=== PATIENT | female | born 1945 | race Caucasian/White ===

== ENCOUNTER → 2016-04-15 | Outpatient (CLI) | payer MEDICARE, MEDICAID | END | disposition home or self-care (01) | LOC: MW.CHIM 08:53 | PROVIDERS: ATTEND Internal Medicine | DX: K14.0 Glossitis (principal); R07.0 Pain in throat; R09.89 Other specified symptoms and signs involving the circulatory and respiratory systems; M35.00 Sjogren syndrome, unspecified; K12.1 Other forms of stomatitis; Z91.19 Patient's noncompliance with other medical treatment and regimen | CPT/HCPCS: 87070; G0463 ==

== ENCOUNTER → 2016-07-02 | Outpatient (CLI) | payer MEDICARE, MEDICAID | LOC: MW.CHPOD 08:00 | PROVIDERS: ATTEND Podiatrist Foot & Ankle Surgery | DX: M21.40 Flat foot [pes planus] (acquired), unspecified foot (principal); M79.672 Pain in left foot; I99.9 Unspecified disorder of circulatory system; M20.41 Other hammer toe(s) (acquired), right foot; L85.1 Acquired keratosis [keratoderma] palmaris et plantaris; B35.1 Tinea unguium; L60.0 Ingrowing nail | CPT/HCPCS: 11055; 11721; G0463 ==

== ENCOUNTER → 2016-07-06 | Outpatient (CLI) | payer MEDICARE, MEDICAID ==
[2016-07-06 08:27] LABS: CHLORIDE,CL 108 mmol/L (98-110); SODIUM,NA 139 mmol/L (136-146)
== END ==
LOC: MW.CHFP 07:30
PROVIDERS: ATTEND Nurse Practitioner Family
DX: E03.9 Hypothyroidism, unspecified (principal); E53.8 Deficiency of other specified B group vitamins; E55.9 Vitamin D deficiency, unspecified; F41.9 Anxiety disorder, unspecified; R68.2 Dry mouth, unspecified; M35.00 Sjogren syndrome, unspecified
CPT/HCPCS: 36415; 80053; 80061; 84443; 99214

== ENCOUNTER → 2016-07-07 | Outpatient (CLI) | payer MEDICARE, MEDICAID ==
--- NOTE | 2016-07-13 12:24 | MY ---
EXAMINATION: Bilateral digital mammography utilizing CAD. HISTORY: Screening exam. Comparison is made to previous studies dated 05/31/2015, 04/17/2014. FINDINGS: Bilateral scattered fibroglandular densities. There are subglandular saline implants not ed bilaterally. No suspicious calcifications, masses or architectural distortions. No pathologic appearing lymph nodes, no abnormal skin thickening or nipple inversion. CAD highlighted regions ap pear normal at this time. IMPRESSION: BI-RADS category II - Benign finding. Continued screening according to ACR-ACS guidelin es suggested. THE FALSE-NEGATIVE RATE OF MAMMOGRAM IS APPROXIMATELY 10%. MANAGEMENT OF A PALPABLE ABNORMALITY MUST BE BASED UPON CLINICAL GROUNDS. SENSITIVITY FOR DETECTION OF ABNORMALITIES IN DENSE BREASTS IS LOW. NOTE: A letter will be sent to the patient regarding findings. [facility] -- MONICA Mendoza [phone] - FAX [phone]
== END ==
LOC: MW.MAM 08:06
PROVIDERS: ATTEND Internal Medicine
DX: Z12.31 Encounter for screening mammogram for malignant neoplasm of breast (principal); E53.8 Deficiency of other specified B group vitamins; E55.9 Vitamin D deficiency, unspecified
CPT/HCPCS: 82607; 82652; G0202; 36415

== ENCOUNTER 2016-08-10 10:48 | Emergency (ER) | payer MEDICARE, MEDICAID ==
[2016-08-10 10:55] VITALS: BP 164/68
[2016-08-10 12:21] LABS: CHLORIDE,CL 107 mmol/L (98-110); SODIUM,NA 137 mmol/L (136-146)
--- NOTE | 2016-08-10 12:45 | EDM.PDOC ---
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 Past medical history: As per history of present illness and as reviewed below otherwise noncontributory. Surgical history: As per history of present illness and as reviewed below otherwise noncontributory. Social history: No reported history of drug or alcohol abuse. Family history: As per history of present illness and as reviewed below otherwise noncontributory. Physical exam: HEENT: Atraumatic, normocephalic, pupils reactive, negative for conjunctival pallor or scleral icterus, mucous membranes moist, throat clear, neck supple, nontender, trachea midline. Lungs: Clear to auscultation, breath sounds equal bilaterally, chest nontender. Heart: S1S2, regular, negative for clicks, rubs, or JVD. Abdomen: Soft, nondistended, nontender. Negative for masses or hepatosplenomegaly. Negative for costovertebral tenderness. Pelvis: Stable nontender. Genitourinary: Deferred. Rectal: Deferred. Extremities: Atraumatic, negative for cords or calf pain. Neurovascular unremarkable. Neuro: Awake, alert, oriented. Cranial nerves II through XII unremarkable. Cerebellum unremarkable. Motor and sensory unremarkable throughout. Exam nonfocal. Renal assessment is benign save as noted in the subjective complaint in the history of present illness Diagnostics: [CBC, CMP, UA] Therapeutics: [] Impression: [Excessive bowel gas] Plan: [Increase fluid intake and increase activity] Definitive disposition and diagnosis as appropriate pending reevaluation and review of above. abd Pain Score (Numeric/FACES): 7 - Related Data Allergies Allergy/AdvReac Type Severity Reaction Status Date / Time codeine Allergy Difficulty Verified 08/10/16 10:53 Breathing diazepam [From Valium] Allergy Arrhythmias Verified 08/10/16 10:53 Home Meds: Home Meds Ergocalciferol (Vitamin D2) [Vitamin D2] 1.25 mg PO DAILY 05/04/14 [History] LORazepam [Ativan] 0.5 mg PO ASDIRECTED PRN 05/04/14 [History] Aspirin [Adult Low Dose Aspirin EC] 1 tab PO BEDTIME 05/18/14 [History] Cyanocobalamin (Vitamin B12) [Vitamin B12] 1,000 mg IM ASDIRECTED 05/18/14 [ History] Levothyroxine [Synthroid] 1 tab PO DAILY 05/18/14 [History] Cholecalciferol (Vitamin D3) [Vitamin D] 1 tab PO WEEKLY 03/31/16 [History] Meclizine [Antivert] 25 mg PO DAILY PRN #20 tablet 03/31/16 [Rx] Prednisone [IJD: predniSONE] 40 mg PO WITHBREAKFAST #10 tab 03/31/16 [Rx] Past Medical History - Past Health History Medical/Surgical History: Denies Medical/Surgical History HEENT History: Reports: Impaired Vision Other Respiratory History: 15-18 yr history of smoking currently 3-4 cigarettes per day, hope to stop after this surgery 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: Reports: Other (See Below) Other OB/BYN History: Hormone replacement therapy Other Neuro History: numbness, cold hands Psychiatric History: Reports: Anxiety Other Psychiatric History: Anxious about the surgery Endocrine/Metabolic History: Reports: Hypothyroidism, Obesity/BMI 30+ Other Endocrine/Metabolic History: Low vitamin D level, vitamin B12 deficiency - Infectious Disease History Infectious Disease History: Reports: Chicken Pox, Shingles - Past Surgical History HEENT Surgical History: Reports: Oral Surgery, Tonsillectomy GI Surgical History: Reports: Appendectomy Other GI Surgeries/Procedures: Pt donated right kidney in 1998 Female Surgical History: Reports: Breast Implant, Hysterectomy Musculoskeletal Surgical History: Reports: Other (See Below) Social & Family History - Family History Family Medical History: Noncontributory - Tobacco Use Smoking Status *Q: Current Every Day Smoker Years of Tobacco use: 10 Packs/Tins Daily: 0.5 Used Tobacco, but Quit: Yes Month Tobacco Last Used: - Caffeine Use Caffeine Use: Reports: Coffee Caffeine Use Comment: 2cup/day - Alcohol Use Days Per Week of Alcohol Use: 1 Number of Drinks Per Day: 1 Total Drinks Per Week: 1 - Recreational Drug Use Recreational Drug Use: No Drug Use in Last 12 Months: No ED ROS GENERAL - Review of Systems Review Of Systems: See Below (See history of present illness) ED EXAM, GI/ABD - Physical Exam Exam: See Below (See history of present illness) Course - Vital Signs Last Recorded V/S: Last Vital Signs Temp 36.6 C 08/10/16 10:53 Pulse 64 08/10/16 10:53 Resp 18 08/10/16 10:53 BP 164/68 H 08/10/16 10:53 Pulse Ox 98 08/10/16 10:53 - Orders/Labs/Meds Orders: Active Orders 24 hr Category Date Time Status KUB [Abdomen 1V Flat] [CR] Stat Exams 08/10/16 11:20 Ordered Labs: Laboratory Tests 08/10/16 08/10/16 08/10/16 Range/Units 11:00 11:48 11:48 WBC 6.46 (4.0-11.0) K/uL RBC 4.18 L (4.30-5.90) M/uL Hgb 12.8 (12.0-16.0) g/dL Hct 37.9 (36.0-46.0) % MCV 90.7 (80.0-98.0) fL MCH 30.6 (27.0-32.0) pg MCHC 33.8 (31.0-37.0) g/dL RDW Std Deviation 45.9 (28.0-62.0) fl RDW Coeff of Shanda 14 (11.0-15.0) % Plt Count 273 (150-400) K/uL MPV 9.80 (7.40-12.00) fL Neut % (Auto) 55.2 (48.0-80.0) % Lymph % (Auto) 30.3 (16.0-40.0) % Frontier % (Auto) 11.1 (0.0-15.0) % Eos % (Auto) 2.8 (0.0-7.0) % Baso % (Auto) 0.6 (0.0-1.5) % Neut # (Auto) 3.6 (1.4-5.7) K/uL Lymph # (Auto) 2.0 (0.6-2.4) K/uL Frontier # (Auto) 0.7 (0.0-0.8) K/uL Eos # (Auto) 0.2 (0.0-0.7) K/uL Baso # (Auto) 0.0 (0.0-0.1) K/uL Nucleated RBC % 0.0 /100WBC Nucleated RBCs # 0 K/uL Sodium 137 (136-146) mmol/L Potassium 4.2 (3.5-5.1) mmol/L Chloride 107 (98-110) mmol/L Carbon Dioxide 22 (21-31) mmol/L BUN 11 (6.0-23.0) mg/dL Creatinine 0.9 (0.6-1.5) mg/dL Est Cr Clr Drug Dosing 42.97 mL/min Estimated GFR (MDRD) > 60.0 ml/min Glucose 88 (60-110) mg/dL Calcium 8.7 L (8.8-10.8) mg/dL Total Bilirubin 0.2 (0.1-1.5) mg/dL AST 15 (5-40) IU/L ALT 12 (8-54) IU/L Alkaline Phosphatase 45 (40-150) Total Protein 7.0 (6.0-8.0) g/dL Albumin 3.8 (3.4-4.8) g/dL Globulin 3.2 (2.0-3.5) g/dL Albumin/Globulin Ratio 1.2 L (1.3-2.8) Urine Color YELLOW Urine Appearance CLEAR Urine pH 6.0 (5.0-8.0) Ur Specific Stover <= 1.005 (1.001-1.035) Urine Protein NEGATIVE (NEGATIVE) mg/dL Urine Glucose (UA) NEGATIVE (NEGATIVE) mg/dL Urine Ketones NEGATIVE (NEGATIVE) mg/dL Urine Occult Blood NEGATIVE (NEGATIVE) Urine Nitrite NEGATIVE (NEGATIVE) Urine Bilirubin NEGATIVE (NEGATIVE) Urine Urobilinogen 0.2 (<2.0) EU/dL Ur Leukocyte Esterase NEGATIVE (NEGATIVE) Urine RBC NONE SEEN (0-2/HPF) Urine WBC 0-1 (0-5/HPF) Ur Epithelial Cells FEW (NONE-FEW) Urine Bacteria FEW (NEGATIVE) Urine Mucus LIGHT (NONE-MOD) Departure - Departure Time of Disposition: 12:43 Disposition: Home, Self-Care 01 Condition: good Clinical Impression: Abdominal pain - Discharge Information Forms: ED Department Discharge Additional Instructions: The following information is given to patients seen in the emergency department who are being discharged to home. This information is to outline your options for follow-up care. We provide all patients seen in our emergency department with a follow-up referral. The need for follow-up, as well as the timing and circumstances, are variable depending upon the specifics of your emergency department visit. If you don't have a primary care physician on staff, we will provide you with a referral. We always advise you to contact your personal physician following an emergency department visit to inform them of the circumstance of the visit and for follow-up with them and/or the need for any referrals to a consulting specialist. The emergency department will also refer you to a specialist when appropriate. This referral assures that you have the opportunity for follow-up care with a specialist. All of these measure are taken in an effort to provide you with optimal care, which includes your follow-up. Under all circumstances we always encourage you to contact your private physician who remains a resource for coordinating your care. When calling for follow-up care, please make the office aware that this follow-up is from your recent emergency room visit. If for any reason you are refused follow-up, please contact the [facility] Emergency Department at and asked to speak to the emergency department charge nurse. Increase hydration Followup with the PCP 1-2 days Return to ED as needed as discussed [facility] [address] [place] [id number] - My Orders Last 24 Hours: My Active Orders 08/10/16 11:20 KUB [Abdomen 1V Flat] [CR] Stat - Assessment/Plan Last 24 Hours: My Active Orders 08/10/16 11:20 KUB [Abdomen 1V Flat] [CR] Stat
--- NOTE | 2016-08-11 14:04 | CR ---
EXAM DATE: 08/10/16 PATIENT'S AGE: 70 Patient: OMAR GREGORIO Facility: [place], [place] Site . Site : 1945 Study: XRay Abdomen [id number]/29/2017 11:35:36 AM Ordering Physician: Doctor Jackson Final Report: HISTORY: Lower abdominal pain for 5 days. Findings: Single AP view of the abdomen is provided. The bowel gas pattern is unremarkable and there is no evidence for obstruction. Multiple surgical clips are seen along the right paraspinal region. Several calcifications are seen within the pelvis which could represent phleboliths. Possibility for distal ureteral calculus is difficult to exclude. Mild degenerative change of the sacroiliac joints is noted. There is a mild lumbar scoliosis convex to the right. Impression: Nonobstructive bowel gas pattern. Dictated by Demetris Collier MD @ Aug 10 2016 11:44AM (Electronic Signature) Report Signed by Proxy. CHACE
== END 2016-08-10 12:58 | disposition home or self-care (01) ==
LOC: MW.ED 10:48
DX: R10.9 Unspecified abdominal pain (principal); F41.9 Anxiety disorder, unspecified; E03.9 Hypothyroidism, unspecified; F17.210 Nicotine dependence, cigarettes, uncomplicated; E66.9 Obesity, unspecified; Z68.29 Body mass index [BMI] 29.0-29.9, adult; Z90.49 Acquired absence of other specified parts of digestive tract; Z90.710 Acquired absence of both cervix and uterus; Z98.890 Other specified postprocedural states; Z79.82 Long term (current) use of aspirin; Z79.899 Other long term (current) drug therapy; Z88.5 Allergy status to narcotic agent
CPT/HCPCS: 36415; 74000; 74000-26; 80053; 81001; 85025; 99282; 99284

== ENCOUNTER 2016-09-17 14:26 | Emergency (ER) | payer MEDICARE, MEDICAID ==
[2016-09-17] MEDS ORDERED: Sodium Chloride 0.9% 2.5 ML Syringe FLUSH PRN (14:44)
[2016-09-17] MEDS ORDERED: Sodium Chloride 0.9% 10 ML Syringe FLUSH PRN (14:44)
[2016-09-17] MEDS ORDERED: Sodium Chloride 0.9% 1,000 ML IV ONE (14:44)
[2016-09-17 14:45] VITALS: BP 128/55
--- NOTE | 2016-09-17 14:52 | EDM.PDOC ---
[id number] Complaint: SEVERE ABDOMINAL PAIN Time Seen by Provider: 09/17/16 14:40 - History of Present Illness INITIAL COMMENTS - FREE TEXT/NARRATIVE: HISTORY AND PHYSICAL: History of present illness: Patient 62-year-old female sent from primary medical doctor's office for abdominal pain patient states she is seen yesterday in the office had x-rays and lab work and now returns with worsening abdominal pain she denies vomiting denies diarrhea there's been no fever chills Review of systems: As per history of present illness and below otherwise all systems reviewed and negative. Past medical history: As per history of present illness and as reviewed below otherwise noncontributory. Surgical history: As per history of present illness and as reviewed below otherwise noncontributory. Social history: No reported history of drug or alcohol abuse. Family history: As per history of present illness and as reviewed below otherwise noncontributory. Physical exam: HEENT: Atraumatic, normocephalic, pupils reactive, negative for conjunctival pallor or scleral icterus, mucous membranes moist, throat clear, neck supple, nontender, trachea midline. Lungs: Clear to auscultation, breath sounds equal bilaterally, chest nontender. Heart: S1S2, regular, negative for clicks, rubs, or JVD. Abdomen: Soft, nondistended, mild nonlocalized tenderness to palpation. Negative for masses or hepatosplenomegaly. Negative for costovertebral tenderness. Pelvis: Stable nontender. Genitourinary: Deferred. Rectal: Deferred. Extremities: Atraumatic, negative for cords or calf pain. Neurovascular unremarkable. Neuro: Awake, alert, oriented. Cranial nerves II through XII unremarkable. Cerebellum unremarkable. Motor and sensory unremarkable throughout. Exam nonfocal. Diagnostics: CBC CMP UA CT abdomen and pelvis Therapeutics: Normal saline 1 L bolus Impression: #1 abdominal pain Definitive disposition and diagnosis as appropriate pending reevaluation and review of above. Lower Abdominal Pain Score (Numeric/FACES): 9 - Related Data Allergies Allergy/AdvReac Type Severity Reaction Status Date / Time codeine Allergy Difficulty Verified 09/17/16 14:41 Breathing diazepam [From Valium] Allergy Arrhythmias Verified 09/17/16 14:41 Home Meds: Home Meds Ergocalciferol (Vitamin D2) [Vitamin D2] 1.25 mg PO DAILY 05/04/14 [History] LORazepam [Ativan] 0.5 mg PO ASDIRECTED PRN 05/04/14 [History] Aspirin [Adult Low Dose Aspirin EC] 1 tab PO BEDTIME 05/18/14 [History] Cyanocobalamin (Vitamin B12) [Vitamin B12] 1,000 mg IM ASDIRECTED 05/18/14 [ History] Levothyroxine [Synthroid] 1 tab PO DAILY 05/18/14 [History] Cholecalciferol (Vitamin D3) [Vitamin D] 1 tab PO WEEKLY 03/31/16 [History] Past Medical History - Past Health History Medical/Surgical History: Denies Medical/Surgical History HEENT History: Reports: Impaired Vision Other Respiratory History: 15-18 yr history of smoking currently 3-4 cigarettes per day, hope to stop after this surgery 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: Other (See Below) Other OB/BYN History: Hormone replacement therapy Other Neuro History: numbness, cold hands Psychiatric History: Reports: Anxiety Other Psychiatric History: Anxious about the surgery Endocrine/Metabolic History: Reports: Hypothyroidism, Obesity/BMI 30+ Other Endocrine/Metabolic History: Low vitamin D level, vitamin B12 deficiency - Infectious Disease History Infectious Disease History: Reports: Chicken Pox, Shingles - Past Surgical History HEENT Surgical History: Reports: Oral Surgery, Tonsillectomy GI Surgical History: Reports: Appendectomy Other GI Surgeries/Procedures: Pt donated right kidney in 1998 Female Surgical History: Reports: Breast Implant, Hysterectomy Social & Family History - Family History Family Medical History: Noncontributory - Tobacco Use Smoking Status *Q: Current Every Day Smoker Years of Tobacco use: 11 Packs/Tins Daily: 1 Used Tobacco, but Quit: Yes Month Tobacco Last Used: - Caffeine Use Caffeine Use: Reports: Coffee Caffeine Use Comment: 2cup/day - Alcohol Use Days Per Week of Alcohol Use: 1 Number of Drinks Per Day: 1 Total Drinks Per Week: 1 - Recreational Drug Use Recreational Drug Use: No Drug Use in Last 12 Months: No ED ROS GENERAL - Review of Systems Review Of Systems: ROS reveals no pertinent complaints other than HPI. ED EXAM, GENERAL - Physical Exam Exam: See Below (See dictation) Course - Vital Signs Last Recorded V/S: Last Vital Signs Temp 36.3 C 09/17/16 14:43 Pulse 60 09/17/16 14:43 Resp 16 09/17/16 14:43 BP 128/55 L 09/17/16 14:43 Pulse Ox 97 09/17/16 14:43 - Orders/Labs/Meds Orders: Active Orders 24 hr Category Date Time Status Saline Lock Insert [OM.PC] Stat Oth 09/17/16 14:44 Ordered Labs: Laboratory Tests 09/17/16 09/17/16 09/17/16 Range/Units 15:09 15:09 15:09 WBC 12.97 H (4.0-11.0) K/uL RBC 3.98 L (4.30-5.90) M/uL Hgb 12.2 (12.0-16.0) g/dL Hct 36.1 (36.0-46.0) % MCV 90.7 (80.0-98.0) fL MCH 30.7 (27.0-32.0) pg MCHC 33.8 (31.0-37.0) g/dL RDW Std Deviation 47.5 (28.0-62.0) fl RDW Coeff of Shanda 14 (11.0-15.0) % Plt Count 333 (150-400) K/uL MPV 9.50 (7.40-12.00) fL Neut % (Auto) 66.0 (48.0-80.0) % Lymph % (Auto) 23.5 (16.0-40.0) % Gilmer % (Auto) 9.1 (0.0-15.0) % Eos % (Auto) 1.1 (0.0-7.0) % Baso % (Auto) 0.3 (0.0-1.5) % Neut # (Auto) 8.6 H (1.4-5.7) K/uL Lymph # (Auto) 3.1 H (0.6-2.4) K/uL Gilmer # (Auto) 1.2 H (0.0-0.8) K/uL Eos # (Auto) 0.1 (0.0-0.7) K/uL Baso # (Auto) 0.0 (0.0-0.1) K/uL Nucleated RBC % 0.0 /100WBC Nucleated RBCs # 0 K/uL INR 0.88 (0.86-1.11) Sodium 136 (136-146) mmol/L Potassium 3.9 (3.5-5.1) mmol/L Chloride 107 (98-110) mmol/L Carbon Dioxide 23 (21-31) mmol/L BUN 9 (6.0-23.0) mg/dL Creatinine 0.9 (0.6-1.5) mg/dL Est Cr Clr Drug Dosing 42.97 mL/min Estimated GFR (MDRD) > 60.0 ml/min Glucose 90 (60-110) mg/dL Calcium 8.5 L (8.8-10.8) mg/dL Total Bilirubin 0.2 (0.1-1.5) mg/dL AST 14 (5-40) IU/L ALT 10 (8-54) IU/L Alkaline Phosphatase 55 (40-150) Total Protein 6.7 (6.0-8.0) g/dL Albumin 3.4 (3.4-4.8) g/dL Globulin 3.3 (2.0-3.5) g/dL Albumin/Globulin Ratio 1.0 L (1.3-2.8) Meds: Medications Discontinued Medications Generic Name Dose Route Start Last Admin Trade Name Freq PRN Reason Stop Dose Admin Sodium Chloride 1,000 mls @ 999 mls/hr 09/17/16 14:44 09/17/16 15:10 Normal Saline IV 09/17/16 15:44 999 mls/hr STAT ONE Administration Sodium Chloride 10 ml 09/17/16 14:44 Saline Flush FLUSH ASDIRECTED PRN Keep Vein Open Sodium Chloride 2.5 ml 09/17/16 14:44 Saline Flush FLUSH ASDIRECTED PRN Keep Vein Open Departure - Departure Time of Disposition: 15:00 Disposition: Against Medical Advice 07 Condition: Good Clinical Impression: Abdominal pain - Discharge Information Referrals: PCP,None [Primary Care Provider] - Forms: ED Department Discharge - My Orders Last 24 Hours: My Active Orders 09/17/16 14:44 Saline Lock Insert [OM.PC] Stat - Assessment/Plan Last 24 Hours: My Active Orders 09/17/16 14:44 Saline Lock Insert [OM.PC] Stat
[2016-09-17 15:48] LABS: CHLORIDE,CL 107 mmol/L (98-110); SODIUM,NA 136 mmol/L (136-146)
== END 2016-09-17 16:12 | disposition left against medical advice (07) ==
LOC: MW.ED 14:26
DX: R10.30 Lower abdominal pain, unspecified (principal); F41.9 Anxiety disorder, unspecified; F17.210 Nicotine dependence, cigarettes, uncomplicated; E03.9 Hypothyroidism, unspecified; E66.9 Obesity, unspecified; Z90.49 Acquired absence of other specified parts of digestive tract; Z98.890 Other specified postprocedural states; Z90.710 Acquired absence of both cervix and uterus; Z90.5 Acquired absence of kidney; Z79.82 Long term (current) use of aspirin; Z88.5 Allergy status to narcotic agent; Z88.8 Allergy status to other drugs, medicaments and biological substances
CPT/HCPCS: 36415; 80053; 85025; 85610; 96360; 99284; J7040; 99283

== ENCOUNTER 2016-11-06 06:30 | Day surgery (SDC) | payer MEDICARE, MEDICAID ==
[~2016-11-06 06:30] MED LIST: Lactated Ringers 1,000 ML IV SCH
[2016-11-06] MEDS ORDERED: Lidocaine 2% 5 ML SDV ONE (07:18)
[2016-11-06] MEDS ORDERED: Propofol 200 MG/20 ML SDV ONE ×2 (07:18→07:54)
--- NOTE | 2016-11-06 07:37 | PCM.PREANE ---
Preanesthetic Assessment - Anesthesia/Transfusion/Family Hx Anesthesia History: Prior Anesthesia Without Reaction Other Type of Anesthesia Reaction Comment: hx: Motion sickness, denies any known problem in past Family History of Anesthesia Reaction: No Transfusion History: No Prior Transfusion(s) Intubation History: Unknown - Review of Systems General: No Symptoms Pulmonary: No Symptoms Cardiovascular: No Symptoms Gastrointestinal: Abdominal Pain Neurological: No Symptoms Other: Reports: None - Physical Assessment NPO Status Date: 11/05/16 NPO Status Time: 21:00 O2 Sat by Pulse Oximetry: 96 Respiratory Rate: 16 Vital Signs: Last Vital Signs Temp 36.6 C 11/06/16 06:49 Pulse 57 L 11/06/16 06:49 Resp 16 11/06/16 06:49 BP 129/60 11/06/16 06:49 Pulse Ox 96 11/06/16 06:49 Height: 1.52 m Weight: 70.7 kg ASA Class: 2 Mental Status: Alert & Oriented x3 Airway Class: Mallampati = 2 Dentition: Reports: Normal Dentition, [place](s) (multiple lower front) Thyro-Mental Finger Breadths: 3 Mouth Opening Finger Breadths: 3 ROM/Head Extension: Full Lungs: Clear to Auscultation, Normal Respiratory Effort Cardiovascular: Regular Rate, Regular Rhythm - Allergies Allergies/Adverse Reactions: Allergies Allergy/AdvReac Type Severity Reaction Status Date / Time codeine Allergy Difficulty Verified 09/17/16 14:41 Breathing diazepam [From Valium] Allergy Arrhythmias Verified 09/17/16 14:41 - Blood Blood Available: No - Anesthesia Plan Pre-Op Medication Ordered: None - Acknowledgements Anesthesia Type Planned: MAC Pt an Appropriate Candidate for the Planned Anesthesia: Yes Alternatives and Risks of Anesthesia Discussed w Pt/Guardian: Yes Pt/Guardian Understands and Agrees with Anesthesia Plan: Yes PreAnesthesia Questionnaire - Past Health History Medical/Surgical History: Denies Medical/Surgical History HEENT History: Reports: Impaired Vision Other HEENT History: wears glasses Other Respiratory History: 15-18 yr history of smoking currently 3-4 cigarettes per day, hope to stop after this surgery. Gastrointestinal History: Reports: Colon Polyp, Other (See Below) (recent diverticulitis, stable liver mass) Genitourinary History: Reports: None RIGGER THIRD History: Reports: Other (See Below) Other OB/BYN History: Hormone replacement therapy Other Neuro History: numbness, cold hands Psychiatric History: Reports: Anxiety Other Psychiatric History: Anxious about the surgery Endocrine/Metabolic History: Reports: Hypothyroidism, Obesity/BMI 30+ Other Endocrine/Metabolic History: Low vitamin D level, vitamin B12 deficiency Immunologic History: Reports: Other (See Below) Other Immunologic History: mild sjogren's syndrome - Infectious Disease History Infectious Disease History: Reports: Chicken Pox, Shingles - Past Surgical History HEENT Surgical History: Reports: Oral Surgery, Tonsillectomy Other HEENT Surgeries/Procedures: Oral surgery for ' canal calficification of tooth' GI Surgical History: Reports: Appendectomy, Colonoscopy Other GI Surgeries/Procedures: Pt donated right kidney in 1998 Female Surgical History: Reports: Breast Implant, Hysterectomy Other Female Surgeries/Procedures: Breast augmentation bilateral saline implants, Nephrectomy Right to donate to family member Male Surgical History: Reports: Nephrectomy Musculoskeletal Surgical History: Reports: Other (See Below) Other Musculoskeletal Surgeries/Procedures:: Some low back pain, not chronic - SUBSTANCE USE Smoking Status *Q: Current Every Day Smoker Tobacco Use Within Last Twelve Months: Cigarettes Other Tobacco Use Within Last Twelve Months: REducing use, current 3-4 cigarettes, planning to quit after this surgery Days Per Week of Alcohol Use: 1 Number of Drinks Per Day: 1 Total Drinks Per Week: 1 Recreational Drug Use History: No - HOME MEDS Home Medications: Home Meds Ergocalciferol (Vitamin D2) [Vitamin D2] 50,000 units PO ASDIRECTED 05/04/14 [ History] LORazepam [Ativan] 0.5 mg PO ASDIRECTED PRN 05/04/14 [History] Aspirin [Adult Low Dose Aspirin EC] 1 tab PO DAILY 05/18/14 [History] Cyanocobalamin (Vitamin B12) [Vitamin B12] 1,000 mg IM ASDIRECTED 05/18/14 [ History] Levothyroxine [Synthroid] 1 tab PO DAILY 05/18/14 [History] Carboxymethylcellulose Sodium [Refresh Tears] 1 drop EYEBOTH ASDIRECTED PRN [History] Estradiol Valerate 0.5 ml IM ASDIRECTED 11/02/16 [History] Nystatin 1 dose PO ASDIRECTED PRN 11/02/16 [History] - CURRENT (IN HOUSE) MEDS Current Meds: Current Medications Lactated Ringer's (Ringers, Lactated) 1,000 mls @ 125 mls/hr IV ASDIRECTED [facility] Last Admin: 11/06/16 07:04 Dose: 125 mls/hr Discontinued Medications Lactated Ringer's (Ringers, Lactated) 1,000 mls @ 125 mls/hr IV ASDIRECTED [facility] Lidocaine (Xylocaine-Mpf 2%) Confirm Administered Dose 5 ml .ROUTE .STK-MED ONE Stop: 11/06/16 07:19 Propofol (Diprivan 20 Ml) Confirm Administered Dose 400 mg .ROUTE .STK-MED ONE Stop: 11/06/16 07:19
--- NOTE | 2016-11-06 08:49 | PCM.OPNOTE ---
- General Post-Op/Procedure Note Date of Surgery/Procedure: 11/06/16 Operative Procedure(s): EGD w/ gastric & duodenal biopsies. Colonoscopy Pre Op Diagnosis: Epigastric pain. Hx of colon polyps. Recent episode of diverticulitis. Post-Op Diagnosis: Gastritis and duodenitis. Pancolonic diverticulosis. Anesthesia Technique: [facility] Primary Surgeon: Sarwat Castillo Manager Special Events: Olya Doshi Condition: Good Free Text/Narrative:: Dictation [id number] and [id number]. CPT CODE 75134/41706
[2016-11-06] MEDS ORDERED: Lactated Ringers 1,000 ML IV SCH (09:00)
[2016-11-06 09:05] VITALS: BP 128/56
--- NOTE | 2016-11-06 14:31 | OR ---
SURGEON: Sarwat Castillo M.D. DATE OF PROCEDURE: 11/06/2016 OPERATION PERFORMED: Esophagogastroduodenoscopy with biopsy. ANESTHESIA: MAC. ASA CLASSIFICATION: II. PREOPERATIVE DIAGNOSIS: Epigastric pain. POSTOPERATIVE DIAGNOSIS: Mild duodenitis and gastritis. DESCRIPTION OF PROCEDURE: The patient was taken to the endoscopy room and positioned on the endoscopy table in the supine position. Time-out was called for appropriate identification of the patient and procedure. Bite-block was placed between the patient's teeth. Monitored anesthesia care was provided. The gastroscope was inserted into the mouth and advanced without difficulty through the esophagus and stomach into the duodenum where examination was carried out in a retrograde fashion. Duodenum does show some [id number] inflammatory changes. Proximal duodenal biopsies were obtained. The gastroscope was withdrawn to the stomach, which also shows a mild gastritis. Antral biopsies were obtained. The gastroscope was retroflexed to visualize the proximal stomach. No tumors, polyps, or ulcers were noted proximally. The gastroscope was then straightened and slowly withdrawn carefully visualizing the greater and lesser curvatures. Again, no polyps were seen. The GE junction was well defined. I did not see any acute inflammatory changes. The esophagus demonstrated good contractility. Vocal cords were visualized as the scope was withdrawn. No polyps were seen. The gastroscope was then removed with the patient having tolerated this portion of the procedure well. Following colonoscopy, the patient was taken to recovery room in stable condition. PIO GALICIA /[id number]
--- NOTE | 2016-11-06 14:34 | OR ---
SURGEON: Sarwat Castillo M.D. DATE OF PROCEDURE: 11/06/2016 OPERATION PERFORMED: Colonoscopy. ANESTHESIA: MAC. ASA CLASSIFICATION: II. PREOPERATIVE DIAGNOSES: 1. Personal history of colon polyps. 2. Recent episode of diverticulitis. POSTOPERATIVE DIAGNOSIS: Pancolonic diverticulosis. DESCRIPTION OF PROCEDURE: With the patient having completed esophagogastroduodenoscopy, she was now positioned in the left lateral decubitus position. The colonoscope was inserted into the rectum and advanced with moderate difficulty to the cecum. Cecum was identified by internal landmarks and external pressure. Colonoscope was retroflexed in the cecum to visualize the ascending colon from below, then straightened, and slowly withdrawn. A couple of small diverticula were noted in the ascending colon. The cecum, ascending colon, hepatic flexure, transverse colon, splenic flexure, and descending colon showed no tumors, polyps or angiodysplastic changes. No diverticula were seen in the remainder of the ascending colon, hepatic flexure, transverse colon, splenic flexure, and descending colon. The sigmoid colon itself demonstrates moderate sigmoid diverticulosis. No stricture, spasm, or bleeding was noted. There were no acute inflammatory changes. No polyps were encountered. The colonoscope was withdrawn to the rectum and retroflexed to visualize the anal orifice from above. No tumors, polyps, or acute hemorrhoidal changes were noted. The colonoscope was then straightened, the rectum aspirated, and the colonoscope removed. The patient tolerated the procedure well and was taken to recovery room in stable condition. PIO / GRAYSON /[id number]
== END 2016-11-06 09:45 | disposition home or self-care (01) ==
LOC: MW.SDS 06:30
PROVIDERS: ATTEND Surgery
DX: K29.50 Unspecified chronic gastritis without bleeding (principal); K57.30 Diverticulosis of large intestine without perforation or abscess without bleeding; F41.9 Anxiety disorder, unspecified; M19.049 Primary osteoarthritis, unspecified hand; E03.9 Hypothyroidism, unspecified; I73.00 Raynaud's syndrome without gangrene; M35.00 Sjogren syndrome, unspecified; F17.210 Nicotine dependence, cigarettes, uncomplicated; E53.8 Deficiency of other specified B group vitamins; Z86.010 Personal history of colon polyps; Z88.5 Allergy status to narcotic agent; Z88.8 Allergy status to other drugs, medicaments and biological substances; Z79.82 Long term (current) use of aspirin; Z79.899 Other long term (current) drug therapy; Z90.5 Acquired absence of kidney; Z90.49 Acquired absence of other specified parts of digestive tract; Z90.710 Acquired absence of both cervix and uterus; Z90.89 Acquired absence of other organs; Z98.890 Other specified postprocedural states
CPT/HCPCS: 43239; 45378; J7120; 00740; 88305; 88312; J2704

== ENCOUNTER 2016-11-30 06:23 | Day surgery (SDC) | payer MEDICARE, MEDICAID ==
[~2016-11-30 06:23] MED LIST changes: +cefOXitin 2 GM in Premix Bag 1 BAG IV ONE
[2016-11-30] MEDS ORDERED: Propofol 200 MG/20 ML SDV ONE (07:14)
[2016-11-30] MEDS ORDERED: Ondansetron 4 MG/2 ML SDV ONE (07:14)
[2016-11-30] MEDS ORDERED: Neostigmine Methylsulfate 1 MG/ML 5 ML Syringe ONE (07:14)
[2016-11-30] MEDS ORDERED: Rocuronium 10 MG/ML 10 ML Syringe ONE (07:14)
[2016-11-30] MEDS ORDERED: Lidocaine 2% 5 ML SDV ONE (07:14)
[2016-11-30] MEDS ORDERED: Midazolam 1 MG/ML 2 ML SDV ONE (07:15)
[2016-11-30] MEDS ORDERED: fentaNYL 100 MCG/2 ML SDV ONE (07:15)
[2016-11-30] MEDS ORDERED: Bupivacaine 0.5% 10 ML SDV ONE (07:17)
[2016-11-30] MEDS ORDERED: ceFAZolin 1 GM Vial ONE (07:17)
--- NOTE | 2016-11-30 07:30 | PCM.PREANE ---
Preanesthetic Assessment - Anesthesia/Transfusion/Family Hx Anesthesia History: Prior Anesthesia Without Reaction Other Type of Anesthesia Reaction Comment: hx: Motion sickness, denies any known problem in past Family History of Anesthesia Reaction: No Transfusion History: No Prior Transfusion(s) Intubation History: Unknown - Review of Systems General: No Symptoms Pulmonary: No Symptoms Cardiovascular: No Symptoms Gastrointestinal: No Symptoms Neurological: No Symptoms Other: Reports: None - Physical Assessment NPO Status Date: 11/29/16 NPO Status Time: 19:00 O2 Sat by Pulse Oximetry: 96 Respiratory Rate: 16 Vital Signs: Last Vital Signs Temp 36.7 C 11/30/16 07:13 Pulse 56 L 11/30/16 07:13 Resp 16 11/30/16 07:13 BP 120/56 L 11/30/16 07:13 Pulse Ox 96 11/30/16 07:13 Height: 1.52 m Weight: 70.7 kg ASA Class: 2 Mental Status: Alert & Oriented x3 Airway Class: Mallampati = 2 Dentition: Reports: Ida(s) ROM/Head Extension: Limited/Partial Lungs: Clear to Auscultation, Normal Respiratory Effort Cardiovascular: Regular Rate, Regular Rhythm - Allergies Allergies/Adverse Reactions: Allergies Allergy/AdvReac Type Severity Reaction Status Date / Time codeine Allergy Difficulty Verified 09/17/16 14:41 Breathing diazepam [From Valium] Allergy Arrhythmias Verified 09/17/16 14:41 - Anesthesia Plan Pre-Op Medication Ordered: Other (scop) - Acknowledgements Anesthesia Type Planned: General Anesthesia Pt an Appropriate Candidate for the Planned Anesthesia: Yes Alternatives and Risks of Anesthesia Discussed w Pt/Guardian: Yes Pt/Guardian Understands and Agrees with Anesthesia Plan: Yes PreAnesthesia Questionnaire - Past Health History Medical/Surgical History: Denies Medical/Surgical History HEENT History: Reports: None Respiratory History: Reports: Other (See Below) Other Respiratory History: 15-18 yr history of smoking currently 3-4 cigarettes per day Gastrointestinal History: Reports: Colon Polyp Genitourinary History: Reports: None 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: , 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 (See Below) Other OB/BYN History: Hormone replacement therapy Other Neuro History: numbness, cold hands Psychiatric History: Reports: Anxiety Other Psychiatric History: Anxious about the surgery Endocrine/Metabolic History: Reports: Hypothyroidism, Obesity/BMI 30+ Other Endocrine/Metabolic History: Low vitamin D level, vitamin B12 deficiency Immunologic History: Reports: Other (See Below) Other Immunologic History: mild sjogren's syndrome - Infectious Disease History Infectious Disease History: Reports: Chicken Pox, Shingles - Past Surgical History HEENT Surgical History: Reports: Cataract Surgery, Oral Surgery, Tonsillectomy Other HEENT Surgeries/Procedures: Oral surgery for ' canal calficification of tooth' GI Surgical History: Reports: Appendectomy, Colonoscopy Other GI Surgeries/Procedures: Pt donated right kidney in 1998 Female Surgical History: Reports: Breast Implant, Hysterectomy, Nephrectomy Other Female Surgeries/Procedures: Breast augmentation bilateral saline implants, Nephrectomy Right to donate to family member Musculoskeletal Surgical History: Reports: Other (See Below) Other Musculoskeletal Surgeries/Procedures:: Some low back pain, not chronic - SUBSTANCE USE Smoking Status *Q: Current Every Day Smoker Tobacco Use Within Last Twelve Months: Cigarettes Other Tobacco Use Within Last Twelve Months: REducing use, current 3-4 cigarettes, planning to quit after this surgery Days Per Week of Alcohol Use: 1 Number of Drinks Per Day: 1 Total Drinks Per Week: 1 Recreational Drug Use History: No - HOME MEDS Home Medications: Home Meds Ergocalciferol (Vitamin D2) [Vitamin D2] 50,000 units PO ASDIRECTED 05/04/14 [ History] LORazepam [Ativan] 0.5 mg PO ASDIRECTED PRN 05/04/14 [History] Aspirin [Adult Low Dose Aspirin EC] 1 tab PO DAILY 05/18/14 [History] Cyanocobalamin (Vitamin B12) [Vitamin B12] 1,000 mg IM ASDIRECTED 05/18/14 [ History] Levothyroxine [Synthroid] 100 mcg PO DAILY 05/18/14 [History] Carboxymethylcellulose Sodium [Refresh Tears] 1 drop EYEBOTH ASDIRECTED PRN [History] Estradiol Valerate 0.5 ml IM ASDIRECTED 11/02/16 [History] Nystatin 1 dose PO ASDIRECTED PRN 11/02/16 [History] - CURRENT (IN HOUSE) MEDS Current Meds: Current Medications Lactated Ringer's (Ringers, Lactated) 1,000 mls @ 125 mls/hr IV ASDIRECTED [facility] Last Admin: 11/30/16 07:11 Dose: 125 mls/hr Discontinued Medications Bupivacaine HCl (Sensorcaine-Mpf 0.5%) Confirm Administered Dose 30 ml .ROUTE .STK-MED ONE Stop: 11/30/16 07:18 Cefazolin Sodium (Ancef) Confirm Administered Dose 1 gm .ROUTE .STK-MED ONE Stop: 11/30/16 07:18 Fentanyl (Sublimaze) Confirm Administered Dose 200 mcg .ROUTE .STK-MED ONE Stop: 11/30/16 07:16 Glycopyrrolate () Confirm Administered Dose 1 mg .ROUTE .STK-MED ONE Stop: 11/30/16 07:15 Cefoxitin Sodium 2 gm/ Premix 50 mls @ 100 mls/hr IV ONETIME ONE Stop: 11/30/16 06:29 Lidocaine (Xylocaine-Mpf 2%) Confirm Administered Dose 5 ml .ROUTE .STK-MED ONE Stop: 11/30/16 07:15 Midazolam HCl (Versed 1 Mg/Ml) Confirm Administered Dose 2 mg .ROUTE .STK-MED ONE Stop: 11/30/16 07:16 Neostigmine Methylsulfate (Neostigmine) Confirm Administered Dose 5 mg .ROUTE .STK-MED ONE Stop: 11/30/16 07:15 Ondansetron HCl (Zofran) Confirm Administered Dose 4 mg .ROUTE .STK-MED ONE Stop: 11/30/16 07:15 Propofol (Diprivan 20 Ml) Confirm Administered Dose 200 mg .ROUTE .STK-MED ONE Stop: 11/30/16 07:15 Rocuronium Rochert (Zemuron) Confirm Administered Dose 100 mg .ROUTE .STK-MED ONE Stop: 11/30/16 07:15
[2016-11-30] MEDS ORDERED: Scopolamine 1.5 MG Transdermal Patch TRDERM PRN (07:32)
[2016-11-30] MEDS ORDERED: Sodium Chloride 0.9% 20 ML ONE (07:48)
[2016-11-30] MEDS ORDERED: cefOXitin 1 GM Vial ONE (07:48)
[2016-11-30] MEDS ORDERED: Phenylephrine/Normal Saline 100 MCG/ML 10 ML Syringe ONE (07:54)
[2016-11-30] MEDS ORDERED: ePHEDrine 50 MG/ML SDV ONE (08:01)
[2016-11-30] MEDS ORDERED: Labetalol 100 MG/20 ML MDV ONE (08:19)
[2016-11-30] MEDS ORDERED: fentaNYL 100 MCG/2 ML SDV IVPUSH PRN (08:25)
[2016-11-30] MEDS ORDERED: Ondansetron 4 MG/2 ML SDV IVPUSH PRN (08:53)
[2016-11-30] MEDS ORDERED: Morphine 10 MG/ML Syringe IVPUSH PRN (08:53)
[2016-11-30] MEDS ORDERED: Ketorolac 30 MG/ML SDV IM ONE (08:53)
[2016-11-30] MEDS ORDERED: Acetaminophen 1,000 MG in Premix Bag 1 BAG IV ONE (08:54)
--- NOTE | 2016-11-30 08:55 | PCM.OPNOTE ---
- General Post-Op/Procedure Note Date of Surgery/Procedure: 11/30/16 Operative Procedure(s): Laparoscopic cholecystectomy Pre Op Diagnosis: Cholelithiasis Post-Op Diagnosis: Cholelithiasis with cholecystitis Anesthesia Technique: General ET Tube (ASA III) Primary Surgeon: Sarwat Castillo Oncologist: Olya Doshi Fluid Replacement, Intraop: 1,200 EBL in mLs: 20 Condition: Good Free Text/Narrative:: Dictation [id number] CPT CODE [id number]
[2016-11-30] MEDS ORDERED: Lactated Ringers 1,000 ML IV SCH (09:00)
--- NOTE | 2016-11-30 09:23 | PCM.POSTAN ---
POST ANESTHESIA ASSESSMENT - MENTAL STATUS Mental Status: Alert, Oriented - RESPIRATORY Respiratory Status: Respiratory Rate WNL, Airway Patent, O2 Saturation Stable - CARDIOVASCULAR CV Status: Pulse Rate WNL, Blood Pressure Stable - GASTROINTESTINAL GI Status: No Symptoms - PAIN Pain Score: 0 - POST OP HYDRATION Hydration Status: Adequate & Stable
--- NOTE | 2016-11-30 09:44 | OR ---
SURGEON: Sarwat Castillo M.D. DATE OF PROCEDURE: 11/30/2016 OPERATION PERFORMED: Laparoscopic cholecystectomy. 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 ANESTHESIA: General endotracheal. ASA CLASSIFICATION: III. PREOPERATIVE DIAGNOSIS: Symptomatic cholelithiasis. POSTOPERATIVE DIAGNOSIS: Symptomatic cholelithiasis.. ESTIMATED BLOOD LOSS: 20 mL. INTRAOPERATIVE FLUID REPLACEMENT: 1200 mL of crystalloid. DESCRIPTION OF PROCEDURE: The patient was taken to the operating room and placed on the operating table in the supine position. Time-out was called for appropriate identification of the patient and procedure. Thigh-high TEDs and sequential compression boots were placed. Following satisfactory attainment of general endotracheal anesthesia, a Ochoa catheter was placed in the patient's urinary bladder. The abdomen was prepped with DuraPrep solution. Sterile drapes were applied. Skin just below the umbilicus was infiltrated with 0.5% Marcaine solution. The skin incision was made and deepened through the subcutaneous tissue obtaining hemostasis with the use of electrocautery. The Veress needle was introduced into the peritoneal cavity. Saline drop test was positive. Carbon dioxide pneumoperitoneum was established with the release set at 13 cm of water. Once we had a satisfactory pneumoperitoneum, a 5 mm camera and port were placed in the infraumbilical position. The patient was now positioned with her feet down and rolled to the left. Under camera vision, 12 mm subxiphoid, 5 mm midclavicular, and 5 mm anterior axillary ports were placed. Each incision was preemptively infiltrated with 0.5% Marcaine solution. The gallbladder was grasped, adhesions were taken down. The cholecystohepatic triangle was dissected free obtaining a good critical view. The cystic duct and cystic artery were serially identified and hemoclipped before division with the laparoscopic Metzenbaum scissor. The gallbladder was dissected away from its bed using electrocautery. The gallbladder was not entered and therefore no bile or stones were spilled. Once the gallbladder was amputated, this was placed in an Endopouch. The right upper quadrant was inspected for hemostasis and the gallbladder bed irrigated with warm sterile saline solution. All fluid was aspirated. Surgicel was placed into the bed of the gallbladder. The right hemidiaphragm was then irrigated with 250 mL of saline containing 20 mL of 0.5% Marcaine solution. That fluid was left in place. The Endopouch containing gallbladder and 12 mm subxiphoid ports were removed. Under camera vision, the midclavicular and anterior axillary ports were removed and finally the infraumbilical camera and port were removed. The wounds were inspected for hemostasis and bleeding sites were electrocoagulated. The subxiphoid and infraumbilical incisions were closed in two layers approximating the subcutaneous tissue with 3-0 Polysorb and the skin with subcuticular 4-0 Monocryl. The midclavicular and anterior axillary incisions were closed with subcuticular 4-0 Monocryl. All incisions were Steri- Stripped and dressed with sterile Tegaderm pads. Sponge, needle, and instrument counts were all correct. The patient tolerated the procedure well. Prior to emergence from anesthesia and extubation, the Ochoa catheter was removed. Following emergence from anesthesia and extubation, the patient was taken to recovery room in stable condition. PIO GALICIA /[id number]
--- NOTE | 2016-11-30 10:57 | PCM48HPAN ---
Post Anesthesia Note - EVALUATION WITHIN 48HRS OF ANESTHETIC Vital Signs in Normal Range: Yes Patient Participated in Evaluation: Yes Respiratory Function Stable: Yes Airway Patent: Yes Cardiovascular Function Stable: Yes Hydration Status Stable: Yes Pain Control Satisfactory: Yes Nausea and Vomiting Control Satisfactory: Yes Mental Status Recovered: Yes
[2016-11-30 11:52] VITALS: BP 114/57
== END 2016-11-30 11:05 | disposition home or self-care (01) ==
LOC: MW.SDS 06:23
PROVIDERS: ATTEND Surgery
PROC: 0FT44ZZ Resection of Gallbladder, Percutaneous Endoscopic Approach (ICD-10-PCS; principal; 2016-11-30)
DX: K80.10 Calculus of gallbladder with chronic cholecystitis without obstruction (principal); F41.9 Anxiety disorder, unspecified; K57.92 Diverticulitis of intestine, part unspecified, without perforation or abscess without bleeding; E55.9 Vitamin D deficiency, unspecified; I83.90 Asymptomatic varicose veins of unspecified lower extremity; E53.8 Deficiency of other specified B group vitamins; Z88.5 Allergy status to narcotic agent; Z88.8 Allergy status to other drugs, medicaments and biological substances; Z79.82 Long term (current) use of aspirin; Z79.810 Long term (current) use of selective estrogen receptor modulators (SERMs); Z79.899 Other long term (current) drug therapy; Z90.49 Acquired absence of other specified parts of digestive tract; Z90.710 Acquired absence of both cervix and uterus; Z98.890 Other specified postprocedural states; Z90.89 Acquired absence of other organs
CPT/HCPCS: 47562; 88304; A9270; J0690; J0694; J1885; J2250; J2405; J3010; J7120; 00790; J2704

== ENCOUNTER 2017-09-24 20:39 | Observation (INO) | payer MEDICARE, MEDICAID ==
[2017-09-24] MEDS ORDERED: Sodium Chloride 0.9% 1,000 ML IV ONE (21:26)
[2017-09-24] MEDS ORDERED: Ondansetron 4 MG/2 ML SDV IVPUSH ONE (21:27)
[2017-09-24] MEDS ORDERED: HYDROmorphone 2 MG/ML Syringe IVPUSH ONE (21:27)
--- NOTE | 2017-09-24 21:29 | EDM.PDOC ---
ED HPI GENERAL MEDICAL PROBLEM - General Chief Complaint: Abdominal Pain Time Seen by Provider: 09/24/17 21:20 - History of Present Illness INITIAL COMMENTS - FREE TEXT/NARRATIVE: HISTORY AND PHYSICAL: History of present illness: Patient 71-year-old female with a history of diverticulitis who's been on outpatient therapy in the form of Flagyl and Cipro for last 2 days with no improvement she's had worsening pain mild nausea no vomiting and headache she did have a CT scan as outpatient that demonstrated diverticulitis. She was instructed by her private medical doctor that if this does not improve that she may require auscultation for pain management and parenteral antibiotics. Review of systems: As per history of present illness and below otherwise all systems reviewed and negative. Past medical history: As per history of present illness and as reviewed below otherwise noncontributory. Surgical history: As per history of present illness and as reviewed below otherwise noncontributory. Social history: No reported history of drug or alcohol abuse. Family history: As per history of present illness and as reviewed below otherwise noncontributory. Physical exam: HEENT: Atraumatic, normocephalic, pupils reactive, negative for conjunctival pallor or scleral icterus, mucous membranes moist, throat clear, neck supple, nontender, trachea midline. Lungs: Clear to auscultation, breath sounds equal bilaterally, chest nontender. Heart: S1S2, regular, negative for clicks, rubs, or JVD. Abdomen: Soft, nondistended, mild left-sided tenderness no rebound no guarding Negative for masses or hepatosplenomegaly. Negative for costovertebral tenderness. Pelvis: Stable nontender. Genitourinary: Deferred. Rectal: Deferred. Extremities: Atraumatic, negative for cords or calf pain. Neurovascular unremarkable. Neuro: Awake, alert, oriented. Cranial nerves II through XII unremarkable. Cerebellum unremarkable. Motor and sensory unremarkable throughout. Exam nonfocal. Diagnostics: CBC CMP Therapeutics: Saline 1 L bolus Dilaudid 1 mg IV Zofran 4 mg IV Impression: #1 abdominal pain/ diverticulitis Definitive disposition and diagnosis as appropriate pending reevaluation and review of above. - Related Data Allergies Allergy/AdvReac Type Severity Reaction Status Date / Time codeine Allergy Difficulty Verified 09/17/16 14:41 Breathing diazepam [From Valium] Allergy Arrhythmias Verified 09/17/16 14:41 Home Meds: Home Meds Ergocalciferol (Vitamin D2) [Vitamin D2] 50,000 units PO ASDIRECTED 05/04/14 [ History] LORazepam [Ativan] 0.5 mg PO ASDIRECTED PRN 05/04/14 [History] Aspirin [Adult Low Dose Aspirin EC] 1 tab PO DAILY 05/18/14 [History] Cyanocobalamin (Vitamin B12) [Vitamin B12] 1,000 mg IM ASDIRECTED 05/18/14 [ History] Levothyroxine [Synthroid] 100 mcg PO DAILY 05/18/14 [History] Carboxymethylcellulose Sodium [Refresh Tears] 1 drop EYEBOTH ASDIRECTED PRN [History] Estradiol Valerate 0.5 ml IM ASDIRECTED 11/02/16 [History] Nystatin 1 dose PO ASDIRECTED PRN 11/02/16 [History] Past Medical History - Past Health History Medical/Surgical History: Denies Medical/Surgical History HEENT History: Reports: None Respiratory History: Reports: Other (See Below) Other Respiratory History: 15-18 yr history of smoking currently 3-4 cigarettes per day Gastrointestinal History: Reports: Colon Polyp Genitourinary History: Reports: None 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: , 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 (See Below) 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 JOINT SEALER History: 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 replacement therapy Other Neuro History: numbness, cold hands Psychiatric History: Reports: Anxiety Other Psychiatric History: Anxious about the surgery Endocrine/Metabolic History: Reports: Hypothyroidism, Obesity/BMI 30+ Other Endocrine/Metabolic History: Low vitamin D level, vitamin B12 deficiency Immunologic History: Reports: Other (See Below) Other Immunologic History: mild sjogren's syndrome - Infectious Disease History Infectious Disease History: Reports: Chicken Pox, Shingles - Past Surgical History Male Surgical History: Social & Family History - Family History Family Medical History: Noncontributory - Caffeine Use Caffeine Use: Reports: Coffee Caffeine Use Comment: 2cup/day ED ROS GENERAL - Review of Systems Review Of Systems: ROS reveals no pertinent complaints other than HPI. ED EXAM, GENERAL - Physical Exam Exam: See Below (See dictation) Departure - Departure Time of Disposition: 21:29 Disposition: Refer to Observation Condition: Good Clinical Impression: Abdominal pain, Diverticulitis - Discharge Information Referrals: PCP,None [Primary Care Provider] -
[2017-09-24] MEDS ORDERED: HYDROmorphone 1 MG/ML Syringe ONE (22:05)
[2017-09-24] MEDS ORDERED: HYDROmorphone 1 MG/ML Syringe IVPUSH ONE (22:05)
[2017-09-24] MEDS ORDERED: oxyCODONE 5 MG Tab PO PRN (22:35)
--- NOTE | 2017-09-24 22:38 | PCM.HP ---
H&P History of Present Illness - General Date of Service: 09/24/17 Admit Problem/Dx: Admission Diagnosis/Problem Admission Diagnosis/Problem Abdominal pain - History of Present Illness Initial Comments - Free Text/Narative: 71 yo female who presents with several day history of abdominal pain and diarrhea. Dr. Levy had started her on Ciprofloxacin and Flagyl for diverticulitis and instructed her to present to the ED if her symptoms did no improve. She did come to the ED complaining worsening abdominal pain, upset stomach, diarrhea, and nausea. She denies any blood in her stool. abdominal Pain Score (Numeric/FACES): 8 - Related Data Allergies/Adverse Reactions: Allergies Allergy/AdvReac Type Severity Reaction Status Date / Time codeine Allergy Difficulty Verified 09/24/17 21:22 Breathing diazepam [From Valium] Allergy Arrhythmias Verified 09/24/17 21:22 Home Medications: Home Meds Ergocalciferol (Vitamin D2) [Vitamin D2] 50,000 units PO ASDIRECTED 05/04/14 [ History] LORazepam [Ativan] 0.5 mg PO ASDIRECTED PRN 05/04/14 [History] Aspirin [Adult Low Dose Aspirin EC] 81 mg PO DAILY 05/18/14 [History] Cyanocobalamin (Vitamin B12) [Vitamin B12] 1,000 mg IM ASDIRECTED 05/18/14 [ History] Levothyroxine [Synthroid] 100 mcg PO DAILY 05/18/14 [History] Carboxymethylcellulose Sodium [Refresh Tears] 1 drop EYEBOTH ASDIRECTED PRN [History] Estradiol Valerate 0.5 ml IM ASDIRECTED 11/02/16 [History] Nystatin 1 dose PO ASDIRECTED PRN 11/02/16 [History] Ciprofloxacin [Cipro XR] 500 mg PO BID 09/24/17 [History] metroNIDAZOLE [Metronidazole] 500 mg PO TID 09/24/17 [History] Past Medical History - Past Health History Medical/Surgical History: Denies Medical/Surgical History HEENT History: Reports: None Respiratory History: Reports: Other (See Below) Other Respiratory History: 15-18 yr history of smoking currently 3-4 cigarettes per day Gastrointestinal History: Reports: Colon Polyp Genitourinary History: Reports: None 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: , Other (See Below) Other OB/BYN History: Hormone replacement therapy Musculoskeletal History: Reports: None Other Neuro History: numbness, cold hands Psychiatric History: Reports: Anxiety Other Psychiatric History: Anxious about the surgery Endocrine/Metabolic History: Reports: Hypothyroidism, Obesity/BMI 30+ Other Endocrine/Metabolic History: Low vitamin D level, vitamin B12 deficiency Immunologic History: Reports: Other (See Below) Other Immunologic History: mild sjogren's syndrome - Infectious Disease History Infectious Disease History: Reports: Chicken Pox, Shingles - Past Surgical History Male Surgical History: Social & Family History - Family History Family Medical History: Noncontributory - Tobacco Use Smoking Status *Q: Former Smoker Used Tobacco, but Quit: Yes Month/Year Tobacco Last Used: "5days ago" - Caffeine Use Caffeine Use: Reports: Coffee Caffeine Use Comment: 2cup/day - Recreational Drug Use Recreational Drug Use: No H&P Review of Systems - Review of Systems: Review Of Systems: ROS reveals no pertinent complaints other than HPI. Exam - Exam Exam: See Below - Vital Signs Vital Signs: Last Vital Signs Temp 36.3 C 09/24/17 21:16 Pulse 72 09/24/17 21:16 Resp 20 09/24/17 21:16 BP 142/61 H 09/24/17 21:16 Pulse Ox 97 09/24/17 21:16 Weight: 72.8 kg - Exam General: Alert, Severe Distress HEENT: Mucosa Moist & [place] Lungs: Clear to Auscultation, Normal Respiratory Effort Cardiovascular: Regular Rate, Regular Rhythm GI/Abdominal Exam: Normal Bowel Sounds, Soft, Non-Tender Extremities: Normal Range of Motion, Non-Tender Skin: Warm, Dry, Intact - Patient Data Lab Results Last 24 hrs: Laboratory Results - last 24 hr 09/24/17 09/24/17 Range/Units 21:35 21:35 WBC 10.19 (4.0-11.0) K/uL RBC 4.13 L (4.30-5.90) M/uL Hgb 12.8 (12.0-16.0) g/dL Hct 36.4 (36.0-46.0) % MCV 88.1 (80.0-98.0) fL MCH 31.0 (27.0-32.0) pg MCHC 35.2 (31.0-37.0) g/dL RDW Std Deviation 44.0 (28.0-62.0) fl RDW Coeff of Shanda 14 (11.0-15.0) % Plt Count 313 (150-400) K/uL MPV 9.10 (7.40-12.00) fL Neut % (Auto) 74.2 (48.0-80.0) % Lymph % (Auto) 15.8 L (16.0-40.0) % [place] % (Auto) 8.3 (0.0-15.0) % Eos % (Auto) 1.4 (0.0-7.0) % Baso % (Auto) 0.3 (0.0-1.5) % Neut # (Auto) 7.6 H (1.4-5.7) K/uL Lymph # (Auto) 1.6 (0.6-2.4) K/uL [place] # (Auto) 0.9 H (0.0-0.8) K/uL Eos # (Auto) 0.1 (0.0-0.7) K/uL Baso # (Auto) 0.0 (0.0-0.1) K/uL Nucleated RBC % 0.0 /100WBC Nucleated RBCs # 0 K/uL Sodium 136 (136-145) mmol/L Potassium 4.0 (3.5-5.1) mmol/L Chloride 103 (98-107) mmol/L Carbon Dioxide 25.9 (21.0-32.0) mmol/L BUN 12 (7.0-18.0) mg/dL Creatinine 1.2 H (0.6-1.0) mg/dL Est Cr Clr Drug Dosing 31.78 mL/min Estimated GFR (MDRD) 44.5 ml/min Glucose 94 (74-106) mg/dL Calcium 8.8 (8.5-10.1) mg/dL Total Bilirubin 0.2 (0.2-1.0) mg/dL AST 24 (15-37) IU/L ALT 23 (14-63) IU/L Alkaline Phosphatase 53 (46-116) U/L Total Protein 7.0 (6.4-8.2) g/dL Albumin 3.5 (3.4-5.0) g/dL Globulin 3.5 (2.0-3.5) g/dL Albumin/Globulin Ratio 1.0 L (1.3-2.8) Result Diagrams: 09/24/17 21:35 09/24/17 21:35 Problem List Initiated/Reviewed/Updated: Yes Orders Last 24hrs: Active Orders 24 hr Category Date Time Status Patient Status [ADT] Stat ADT 09/24/17 21:32 Active Oxygen Therapy [RC] PRN Care 09/24/17 22:35 Ordered VTE/DVT Education [RC] PER UNIT ROUTINE Care 09/24/17 22:35 Ordered Vital Signs [RC] Q4H Care 09/24/17 22:35 Ordered Clear Liquid Diet [DIET] Diet 09/24/17 Breakfast Ordered BASIC METABOLIC PANEL,BMP [CHEM] AM Lab 09/25/17 05:11 Ordered CBC WITH AUTO DIFF [HEME] AM Lab 09/25/17 05:11 Ordered Ciprofloxacin in D5W [Cipro in D5W 400 MG/200 ML] 400 Med 09/24/17 22:45 Ordered mg Premix Bag 1 bag IV Q12H Levothyroxine [Synthroid] Med 09/25/17 09:00 Ordered 100 mcg PO DAILY Ondansetron [Zofran] Med 09/24/17 22:35 Ordered 4 mg IVPUSH Q4H PRN Sodium Chloride 0.9% @ 125 MLS/HR (1000ml) Med 09/24/17 22:45 Ordered Sodium Chloride 0.9% [Normal Saline] 1,000 ml IV ASDIRECTED metroNIDAZOLE/Normal Saline [Flagyl 500 MG in NS 100 ML Med 09/25/17 00:00 Ordered ] 500 mg Premix Bag 1 bag IV QID oxyCODONE Med 09/24/17 22:35 Ordered 5 mg PO Q4H PRN Sequential Compression Device [OM.PC] Per Unit Routine Oth 09/24/17 22:35 Ordered Medication Orders Sodium Chloride (Normal Saline) 1,000 mls @ 125 mls/hr IV ASDIRECTED [facility] Ciprofloxacin/Dextrose 400 mg/ (Premix) 200 mls @ 200 mls/hr IV Q12H [facility] Metronidazole 500 mg/ Premix 100 mls @ 100 mls/hr IV QID [facility] Levothyroxine Sodium (Synthroid) 100 mcg PO DAILY [facility] Ondansetron HCl (Zofran) 4 mg IVPUSH Q4H PRN PRN Reason: nausea Oxycodone HCl (Oxycodone) 5 mg PO Q4H PRN PRN Reason: Pain (moderate 4-6) Assessment/Plan Comment:: 71 yo female admitted for abdominal pain, nausea and diarrhea. CT report is confusing as it states there is an is not evidence for diverticultis so will clarify with radiology. Will treat with IV fluids and antiemetics. Will place on IV cipro and flagyl for now.
[2017-09-24] MEDS: Ciprofloxacin in D5W 400 MG in Premix Bag 1 BAG IV SCH ×2 (23:08)
[2017-09-25] MEDS: Ondansetron 4 MG/2 ML SDV IVPUSH PRN ×2 (00:15→15:28)
[2017-09-25] MEDS: metroNIDAZOLE/Normal Saline 500 MG in Premix Bag 1 BAG IV SCH ×5 (00:19→23:56)
[2017-09-25] MEDS: Sodium Chloride 0.9% 1,000 ML IV SCH ×3 (00:20→17:28)
[2017-09-25] MEDS ORDERED: LORazepam 0.5 MG Tab PO PRN (00:53)
[2017-09-25] MEDS: Levothyroxine 100 MCG Tab PO SCH (08:01)
--- NOTE | 2017-09-25 09:06 | PCM.PN ---
- General Info Date of Service: 09/25/17 - Review of Systems Systems Review Comment:: abdominal pain and nausea improving. - Patient Data Vitals - Most Recent: Last Vital Signs Temp 36.1 C 09/25/17 07:24 Pulse 60 09/25/17 07:24 Resp 20 09/25/17 07:24 BP 110/59 L 09/25/17 07:24 Pulse Ox 97 09/25/17 07:24 Weight - Most Recent: 72.8 kg I&O - Last 24 Hours: Intake & Output 09/24/17 09/25/17 09/25/17 22:59 06:59 14:59 Intake Total 998 Output Total 300 Balance 698 Lab Results Last 24 Hours: Laboratory Results - last 24 hr 09/24/17 09/24/17 Range/Units 21:35 21:35 WBC 10.19 (4.0-11.0) K/uL RBC 4.13 L (4.30-5.90) M/uL Hgb 12.8 (12.0-16.0) g/dL Hct 36.4 (36.0-46.0) % MCV 88.1 (80.0-98.0) fL MCH 31.0 (27.0-32.0) pg MCHC 35.2 (31.0-37.0) g/dL RDW Std Deviation 44.0 (28.0-62.0) fl RDW Coeff of Shanda 14 (11.0-15.0) % Plt Count 313 (150-400) K/uL MPV 9.10 (7.40-12.00) fL Neut % (Auto) 74.2 (48.0-80.0) % Lymph % (Auto) 15.8 L (16.0-40.0) % [place] % (Auto) 8.3 (0.0-15.0) % Eos % (Auto) 1.4 (0.0-7.0) % Baso % (Auto) 0.3 (0.0-1.5) % Neut # (Auto) 7.6 H (1.4-5.7) K/uL Lymph # (Auto) 1.6 (0.6-2.4) K/uL [place] # (Auto) 0.9 H (0.0-0.8) K/uL Eos # (Auto) 0.1 (0.0-0.7) K/uL Baso # (Auto) 0.0 (0.0-0.1) K/uL Nucleated RBC % 0.0 /100WBC Nucleated RBCs # 0 K/uL Sodium 136 (136-145) mmol/L Potassium 4.0 (3.5-5.1) mmol/L Chloride 103 (98-107) mmol/L Carbon Dioxide 25.9 (21.0-32.0) mmol/L BUN 12 (7.0-18.0) mg/dL Creatinine 1.2 H (0.6-1.0) mg/dL Est Cr Clr Drug Dosing 31.78 mL/min Estimated GFR (MDRD) 44.5 ml/min Glucose 94 (74-106) mg/dL Calcium 8.8 (8.5-10.1) mg/dL Total Bilirubin 0.2 (0.2-1.0) mg/dL AST 24 (15-37) IU/L ALT 23 (14-63) IU/L Alkaline Phosphatase 53 (46-116) U/L Total Protein 7.0 (6.4-8.2) g/dL Albumin 3.5 (3.4-5.0) g/dL Globulin 3.5 (2.0-3.5) g/dL Albumin/Globulin Ratio 1.0 L (1.3-2.8) Med Orders - Current: Current Medications Sodium Chloride (Normal Saline) 1,000 mls @ 125 mls/hr IV ASDIRECTED [facility] Last Admin: 09/25/17 08:01 Dose: 125 mls/hr Ciprofloxacin/Dextrose 400 mg/ (Premix) 200 mls @ 200 mls/hr IV Q12H [facility] Last Admin: 09/24/17 23:08 Dose: 200 mls/hr Metronidazole 500 mg/ Premix 100 mls @ 100 mls/hr IV QID [facility] Last Admin: 09/25/17 05:33 Dose: 100 mls/hr Levothyroxine Sodium (Synthroid) 100 mcg PO DAILY [facility] Last Admin: 09/25/17 08:01 Dose: 100 mcg Lorazepam (Ativan) 0.5 mg PO BEDTIME PRN PRN Reason: Anxiety Last Admin: 09/25/17 01:08 Dose: 0.5 mg Ondansetron HCl (Zofran) 4 mg IVPUSH Q4H PRN PRN Reason: nausea Last Admin: 09/25/17 00:15 Dose: 4 mg Oxycodone HCl (Oxycodone) 5 mg PO Q4H PRN PRN Reason: Pain (moderate 4-6) Last Admin: 09/25/17 00:16 Dose: 5 mg Discontinued Medications Hydromorphone HCl (Dilaudid) 1 mg IVPUSH ONETIME ONE Stop: 09/24/17 21:28 Last Admin: 09/24/17 23:58 Dose: Not Given Hydromorphone HCl (Dilaudid) 1 mg IVPUSH ONETIME ONE Stop: 09/24/17 22:06 Last Admin: 09/24/17 22:27 Dose: 1 mg Hydromorphone HCl (Dilaudid) Confirm Administered Dose 1 mg .ROUTE .STK-MED ONE Stop: 09/24/17 22:06 Last Admin: 09/24/17 22:29 Dose: Not Given Sodium Chloride (Normal Saline) 1,000 mls @ 999 mls/hr IV .Bolus ONE Stop: 09/24/17 22:26 Last Admin: 09/24/17 22:17 Dose: 999 mls/hr Ondansetron HCl (Zofran) 4 mg IVPUSH ONETIME ONE Stop: 09/24/17 21:28 Last Admin: 09/24/17 22:17 Dose: 4 mg - Exam General: Alert, Oriented Neck: Supple Lungs: Clear to Auscultation, Normal Respiratory Effort Cardiovascular: Regular Rate, Regular Rhythm GI/Abdominal Exam: Normal Bowel Sounds, Soft, Non-Tender Extremities: Normal Range of Motion, Non-Tender Skin: Warm, Dry, Intact - Problem List Review Problem List Initiated/Reviewed/Updated: Yes - My Orders Last 24 Hours: My Active Orders 09/24/17 22:35 Oxygen Therapy [RC] PRN VTE/DVT Education [RC] PER UNIT ROUTINE Vital Signs [RC] Q4H Ondansetron [Zofran] 4 mg IVPUSH Q4H PRN oxyCODONE 5 mg PO Q4H PRN Sequential Compression Device [OM.PC] Per Unit Routine 09/24/17 22:45 Ciprofloxacin in D5W [Cipro in D5W 400 MG/200 ML] 400 mg Premix Bag 1 bag IV Q12H Sodium Chloride 0.9% [Normal Saline] 1,000 ml IV ASDIRECTED 09/25/17 00:00 metroNIDAZOLE/Normal Saline [Flagyl 500 MG in NS 100 ML] 500 mg Premix Bag 1 bag IV QID 09/25/17 00:53 LORazepam [Ativan] 0.5 mg PO BEDTIME PRN 09/25/17 05:11 BASIC METABOLIC PANEL,BMP [CHEM] AM CBC WITH AUTO DIFF [HEME] AM 09/25/17 09:00 Levothyroxine [Synthroid] 100 mcg PO DAILY - Plan Plan:: 71 yo female admitted for abdominal pain, nausea and diarrhea. Patient is improving, will clarify CT report with radiology, continue IV fluids.
[2017-09-25] MEDS: Ciprofloxacin in D5W 400 MG in Premix Bag 1 BAG IV SCH ×4 (09:44→22:13)
[2017-09-25] MEDS ORDERED: Nystatin Susp 100,000 Unit/ML 5 ML UD Cup PO PRN (19:15)
[2017-09-26] MEDS: Sodium Chloride 0.9% 1,000 ML IV SCH (05:26)
[2017-09-26] MEDS: metroNIDAZOLE/Normal Saline 500 MG in Premix Bag 1 BAG IV SCH (05:26)
--- NOTE | 2017-09-26 09:10 | PCM.DCSUM1 ---
Discharge Summary - Discharge Data Discharge Date: 09/26/17 Discharge Disposition: Home, Self-Care 01 Condition: Good - Patient Summary/Data Hospital Course: 71 yo female who was admitted for gastritis. She presented with several day history of abdominal pain. Patient reports Dr. Levy had started her on Ciprofloxacin and Flagyl for diverticulitis and instructed her to present to the ED if her symptoms did no improve. She did come to the ED complaining worsening epigastric pain, upset stomach, diarrhea, and nausea. Patient had no fever or white count. On review of CT scan of abdomen there is no acute findings and no evidence of diverticulitis. There was a clerical error in a prior CT report read that stated that there was evidence of diverticulitis. Patient was treated with IV Fluids and antiemetics. She did have improvement of her symptoms. She was discharged home and her antibiotics were discontinued. - Patient Instructions Diet: Usual Diet as Tolerated Activity: As Tolerated - Discharge Plan Prescriptions/Med Rec: Pantoprazole Sodium [Protonix] 20 mg PO DAILY #14 tablet.dr Jerome Medications: Home Meds Ergocalciferol (Vitamin D2) [Vitamin D2] 50,000 units PO ASDIRECTED 05/04/14 [ History] LORazepam [Ativan] 0.5 mg PO ASDIRECTED PRN 05/04/14 [History] Aspirin [Adult Low Dose Aspirin EC] 81 mg PO DAILY 05/18/14 [History] Cyanocobalamin (Vitamin B12) [Vitamin B12] 1,000 mg IM ASDIRECTED 05/18/14 [ History] Levothyroxine [Synthroid] 100 mcg PO DAILY 05/18/14 [History] Carboxymethylcellulose Sodium [Refresh Tears] 1 drop EYEBOTH ASDIRECTED PRN [History] Estradiol Valerate 0.5 ml IM ASDIRECTED 11/02/16 [History] Nystatin 1 dose PO ASDIRECTED PRN 11/02/16 [History] Pantoprazole Sodium [Protonix] 20 mg PO DAILY #14 tablet. 09/26/17 [Rx] Forms: ED Department Discharge Referrals: PCP,None [Primary Care Provider] - - Patient Data Vitals - Most Recent: Last Vital Signs Temp 36.9 C 09/26/17 04:00 Pulse 60 09/26/17 04:00 Resp 17 09/26/17 04:00 BP 141/50 H 09/26/17 04:00 Pulse Ox 96 09/26/17 04:00 Weight - Most Recent: 72.8 kg I&O - Last 24 hours: Intake & Output 09/25/17 09/26/17 09/26/17 22:59 06:59 14:59 Intake Total 1820 350 Output Total 1250 800 Balance 570 -450 Lab Results - Last 24 hrs: Laboratory Results - last 24 hr 09/25/17 09/25/17 Range/Units 09:07 09:07 WBC 9.14 (4.0-11.0) K/uL RBC 3.94 L (4.30-5.90) M/uL Hgb 12.3 (12.0-16.0) g/dL Hct 35.1 L (36.0-46.0) % MCV 89.1 (80.0-98.0) fL MCH 31.2 (27.0-32.0) pg MCHC 35.0 (31.0-37.0) g/dL RDW Std Deviation 44.8 (28.0-62.0) fl RDW Coeff of Shanda 14 (11.0-15.0) % Plt Count 339 (150-400) K/uL MPV 9.80 (7.40-12.00) fL Neut % (Auto) 72.8 (48.0-80.0) % Lymph % (Auto) 20.4 (16.0-40.0) % [place] % (Auto) 6.2 (0.0-15.0) % Eos % (Auto) 0.4 (0.0-7.0) % Baso % (Auto) 0.2 (0.0-1.5) % Neut # (Auto) 6.7 H (1.4-5.7) K/uL Lymph # (Auto) 1.9 (0.6-2.4) K/uL [place] # (Auto) 0.6 (0.0-0.8) K/uL Eos # (Auto) 0.0 (0.0-0.7) K/uL Baso # (Auto) 0.0 (0.0-0.1) K/uL Nucleated RBC % 0.0 /100WBC Nucleated RBCs # 0 K/uL Sodium 138 (136-145) mmol/L Potassium 3.7 (3.5-5.1) mmol/L Chloride 106 (98-107) mmol/L Carbon Dioxide 23.2 (21.0-32.0) mmol/L BUN 8 (7.0-18.0) mg/dL Creatinine 1.1 H (0.6-1.0) mg/dL Est Cr Clr Drug Dosing 34.67 mL/min Estimated GFR (MDRD) 49.2 ml/min Glucose 102 (74-106) mg/dL Calcium 7.9 L (8.5-10.1) mg/dL Med Orders - Current: Current Medications Sodium Chloride (Normal Saline) 1,000 mls @ 125 mls/hr IV ASDIRECTED [facility] Last Admin: 09/26/17 05:26 Dose: 125 mls/hr Ciprofloxacin/Dextrose 400 mg/ (Premix) 200 mls @ 200 mls/hr IV Q12H [facility] Last Admin: 09/25/17 22:13 Dose: 200 mls/hr Metronidazole 500 mg/ Premix 100 mls @ 100 mls/hr IV QID [facility] Last Admin: 09/26/17 05:26 Dose: 100 mls/hr Levothyroxine Sodium (Synthroid) 100 mcg PO DAILY [facility] Last Admin: 09/25/17 08:01 Dose: 100 mcg Lorazepam (Ativan) 0.5 mg PO BEDTIME PRN PRN Reason: Anxiety Last Admin: 09/25/17 01:08 Dose: 0.5 mg Nystatin (Mycostatin) 5 ml PO QID PRN PRN Reason: dry mouth Ondansetron HCl (Zofran) 4 mg IVPUSH Q4H PRN PRN Reason: nausea Last Admin: 09/25/17 15:28 Dose: 4 mg Oxycodone HCl (Oxycodone) 5 mg PO Q4H PRN PRN Reason: Pain (moderate 4-6) Last Admin: 09/25/17 00:16 Dose: 5 mg Discontinued Medications Hydromorphone HCl (Dilaudid) 1 mg IVPUSH ONETIME ONE Stop: 09/24/17 21:28 Last Admin: 09/24/17 23:58 Dose: Not Given Hydromorphone HCl (Dilaudid) 1 mg IVPUSH ONETIME ONE Stop: 09/24/17 22:06 Last Admin: 09/24/17 22:27 Dose: 1 mg Hydromorphone HCl (Dilaudid) Confirm Administered Dose 1 mg .ROUTE .STK-MED ONE Stop: 09/24/17 22:06 Last Admin: 09/24/17 22:29 Dose: Not Given Sodium Chloride (Normal Saline) 1,000 mls @ 999 mls/hr IV .Bolus ONE Stop: 09/24/17 22:26 Last Admin: 09/24/17 22:17 Dose: 999 mls/hr Ondansetron HCl (Zofran) 4 mg IVPUSH ONETIME ONE Stop: 09/24/17 21:28 Last Admin: 09/24/17 22:17 Dose: 4 mg
[2017-09-26] MEDS: Levothyroxine 100 MCG Tab PO SCH (09:11)
[2017-09-26 10:40] VITALS: BP 124/61
== END 2017-09-26 09:50 | disposition home or self-care (01) ==
LOC: MW.ED 20:39 → MW.MS 21:32
PROVIDERS: ADMIT Internal Medicine; ATTEND Internal Medicine
DX: K29.70 Gastritis, unspecified, without bleeding (principal); K57.92 Diverticulitis of intestine, part unspecified, without perforation or abscess without bleeding; Z88.5 Allergy status to narcotic agent; Z88.8 Allergy status to other drugs, medicaments and biological substances; F41.9 Anxiety disorder, unspecified; E03.9 Hypothyroidism, unspecified; E55.9 Vitamin D deficiency, unspecified; E53.8 Deficiency of other specified B group vitamins; E66.9 Obesity, unspecified; F17.210 Nicotine dependence, cigarettes, uncomplicated; Z79.2 Long term (current) use of antibiotics; Z79.82 Long term (current) use of aspirin; Z79.899 Other long term (current) drug therapy
CPT/HCPCS: 36415; 80048; 80053; 85025; 96361; 96365; 96366; 96367; 96375; 96376; 99285; A9270; G0378; J0744; J1170; J2405; J7040; 99283; J3490

== ENCOUNTER 2018-05-24 20:34 | Emergency (ER) | payer MEDICARE, MEDICAID ==
[2018-05-24 20:53] VITALS: BP 152/80
[2018-05-24] MEDS ORDERED: Sodium Chloride 0.9% 2.5 ML Syringe FLUSH PRN (20:58)
[2018-05-24] MEDS ORDERED: Sodium Chloride 0.9% 10 ML Syringe FLUSH PRN (20:58)
[2018-05-24] MEDS ORDERED: Sodium Chloride 0.9% 1,000 ML IV ONE (20:58)
[2018-05-24] MEDS ORDERED: Acetaminophen 325 MG Tab PO ONE (20:58)
--- NOTE | 2018-05-24 21:02 | EDM.PDOC ---
ED HPI GENERAL MEDICAL PROBLEM - General Chief Complaint: Cardiovascular Problem Stated Complaint: HBP Time Seen by Provider: 05/24/18 20:53 - History of Present Illness INITIAL COMMENTS - FREE TEXT/NARRATIVE: HISTORY AND PHYSICAL: History of present illness: The patient is a 72-year-old female who has no history of hypertension or cardiac issues and follows with Mile Lopez at [facility] and presents with complaints of feeling like her blood pressure was elevated, taking her blood pressure at home and having a systolic blood pressure of 190, feeling lightheaded and having a frontal headache and concerned about this blood pressure. She says she's never had elevated blood pressure before but today was a rough day as she was working very hard at work and did not have time to eat or drink very much and had a lot of stress. The patient took 3 baby aspirin for her headache and nothing else. She did not pass out or blacked out and has no focal weakness numbness or tingling to her extremities and no posterior head neck or back pain. She's had normal urine output and no flank or abdominal pain nausea or vomiting. She said she did have 2 loose stools today but they were not black or bloody. She said that her elevated blood pressure made her feel very anxious and she came here for evaluation. The patient has no upper respiratory symptoms sinus pain or drainage. The patient says she was not dizzy earlier but just felt somewhat lightheaded and had generalized weakness which is now improved. Review of systems: As per history of present illness and below otherwise all systems reviewed and negative. Past medical history: As per history of present illness and as reviewed below otherwise noncontributory. Surgical history: As per history of present illness and as reviewed below otherwise noncontributory. Social history: No reported history of drug or alcohol abuse. Family history: As per history of present illness and as reviewed below otherwise noncontributory. Physical exam: Well-developed well-nourished female who is nontoxic and vital signs were noted by me. There are no palpable scalp deformities or tenderness appreciated on exam. HEENT: Atraumatic, normocephalic, pupils reactive, negative for conjunctival pallor or scleral icterus, mucous membranes moist, throat clear, neck supple, nontender, trachea midline. There are no midline step-offs tenderness or defects of the cervical spine and no cervical adenopathy or thyromegaly Lungs: Clear to auscultation, breath sounds equal bilaterally, chest nontender. Heart: S1S2, regular, negative for clicks, rubs, or JVD. Abdomen: Soft, nondistended, nontender. Negative for masses or hepatosplenomegaly. Negative for costovertebral tenderness. Pelvis: Stable nontender. Genitourinary: Deferred. Rectal: Deferred. Extremities: Atraumatic, negative for cords or calf pain. Neurovascular unremarkable. No pedal edema or leg asymmetry Neuro: Awake, alert, oriented. Cranial nerves II through XII unremarkable. Cerebellum unremarkable. Motor and sensory unremarkable throughout. Exam nonfocal. Diagnostics: EKG CBC CMP TSH troponin INR UA orthostatic vitals chest x-ray CT scan of the head Therapeutics: IV O2 monitor Tylenol IV fluids Toradol Patient is feeling better and her blood pressure has normalized to 120s over 70s without any intervention. I have discussed with the patient her elevated TSH and as she has a history of hypothyroidism her provider can look into that for medication adjustment. 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 I will get a urine sample and follow that result up and have discussed with her keeping a journal of her blood pressures so as to help her provider in the clinic to see if she does need to go on medication or if today's event was a one time episode. She states understanding. Impression: Episode of hypertension with lightheadedness resolved spontaneously Definitive disposition and diagnosis as appropriate pending reevaluation and review of above. Headache Pain Score (Numeric/FACES): 8 - Related Data Allergies Allergy/AdvReac Type Severity Reaction Status Date / Time codeine Allergy Difficulty Verified 05/24/18 20:53 Breathing diazepam [From Valium] Allergy Arrhythmias Verified 05/24/18 20:53 Home Meds: Home Meds Ergocalciferol (Vitamin D2) [Vitamin D2] 50,000 units PO ASDIRECTED 05/04/14 [ History] LORazepam [Ativan] 0.5 mg PO ASDIRECTED PRN 05/04/14 [History] Aspirin [Adult Low Dose Aspirin EC] 81 mg PO DAILY 05/18/14 [History] Cyanocobalamin (Vitamin B12) [Vitamin B12] 1,000 mg IM ASDIRECTED 05/18/14 [ History] Levothyroxine [Synthroid] 25 mcg PO DAILY 05/18/14 [History] Carboxymethylcellulose Sodium [Refresh Tears] 1 drop EYEBOTH ASDIRECTED PRN [History] Estradiol Valerate 0.5 ml IM ASDIRECTED 11/02/16 [History] Past Medical History - Past Health History Medical/Surgical History: Denies Medical/Surgical History HEENT History: Reports: None Respiratory History: Reports: Other (See Below) Other Respiratory History: 15-18 yr history of smoking currently 3-4 cigarettes per day Gastrointestinal History: Reports: Colon Polyp Genitourinary History: Reports: None 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: , Other (See Below) Other FIBERGLASS PRODUCT TESTER History: Hormone replacement therapy Musculoskeletal History: Reports: None Neurological History: Reports: None Other Neuro History: numbness, cold hands Psychiatric History: Reports: Anxiety Other Psychiatric History: Anxious about the surgery Endocrine/Metabolic History: Reports: Hypothyroidism, Obesity/BMI 30+ Other Endocrine/Metabolic History: Low vitamin D level, vitamin B12 deficiency Hematologic History: Reports: B12 Deficiency Immunologic History: Reports: Other (See Below) Other Immunologic History: mild sjogren's syndrome - Infectious Disease History Infectious Disease History: Reports: Chicken Pox, Shingles - Past Surgical History Male Surgical History: Social & Family History - Family History Family Medical History: Noncontributory - Caffeine Use Caffeine Use: Reports: Coffee Caffeine Use Comment: 2cup/day ED ROS GENERAL - Review of Systems Review Of Systems: ROS reveals no pertinent complaints other than HPI. ED EXAM, GENERAL - Physical Exam Exam: See Below (See dictation) Course - Vital Signs Last Recorded V/S: Last Vital Signs Temp 36.4 C 05/24/18 20:49 Pulse 75 05/24/18 20:49 Resp 18 05/24/18 20:49 BP 152/80 H 05/24/18 20:49 Pulse Ox 96 05/24/18 20:58 Orthostatic Blood Pressure [ 136/71 Standing] Orthostatic Blood Pressure [ 123/65 Sitting] Orthostatic Blood Pressure [ 139/53 Supine] - Orders/Labs/Meds Orders: Active Orders 24 hr Category Date Time Status Blood Glucose Check, Bedside [RC] ONETIME Care 05/24/18 20:58 Active Cardiac Monitoring [RC] . DIRECTED Care 05/24/18 20:58 Active EKG Documentation Completion [RC] STAT Care 05/24/18 20:58 Active Orthostatic Vital Signs [RC] ASDIRECTED Care 05/24/18 20:58 Active Oxygen Therapy, ED [RC] ASDIRECTED Care 05/24/18 20:58 Active Pulse Oximetry [RC] ASDIRECTED Care 05/24/18 20:58 Active Sodium Chloride 0.9% [Saline Flush] Med 05/24/18 20:58 Active 10 ml FLUSH ASDIRECTED PRN Sodium Chloride 0.9% [Saline Flush] Med 05/24/18 20:58 Active 2.5 ml FLUSH ASDIRECTED PRN Saline Lock Insert [OM.PC] Stat Oth 05/24/18 20:58 Ordered Medication Orders Sodium Chloride (Saline Flush) 10 ml FLUSH ASDIRECTED PRN PRN Reason: Keep Vein Open Sodium Chloride (Saline Flush) 2.5 ml FLUSH ASDIRECTED PRN PRN Reason: Keep Vein Open Labs: Laboratory Tests 05/24/18 05/24/18 05/24/18 Range/Units 21:00 21:00 21:00 WBC 9.03 (4.0-11.0) K/uL RBC 4.19 L (4.30-5.90) M/uL Hgb 13.3 (12.0-16.0) g/dL Hct 37.6 (36.0-46.0) % MCV 89.7 (80.0-98.0) fL MCH 31.7 (27.0-32.0) pg MCHC 35.4 (31.0-37.0) g/dL RDW Std Deviation 46.2 (28.0-62.0) fl RDW Coeff of Shanda 14 (11.0-15.0) % Plt Count 347 (150-400) K/uL MPV 9.20 (7.40-12.00) fL Neut % (Auto) 66.0 (48.0-80.0) % Lymph % (Auto) 22.0 (16.0-40.0) % [place] % (Auto) 9.9 (0.0-15.0) % Eos % (Auto) 1.8 (0.0-7.0) % Baso % (Auto) 0.3 (0.0-1.5) % Neut # (Auto) 6.0 H (1.4-5.7) K/uL Lymph # (Auto) 2.0 (0.6-2.4) K/uL [place] # (Auto) 0.9 H (0.0-0.8) K/uL Eos # (Auto) 0.2 (0.0-0.7) K/uL Baso # (Auto) 0.0 (0.0-0.1) K/uL Nucleated RBC % 0.0 /100WBC Nucleated RBCs # 0 K/uL INR 0.97 Sodium 137 (136-145) mmol/L Potassium 3.4 L (3.5-5.1) mmol/L Chloride 101 (98-107) mmol/L Carbon Dioxide 24.1 (21.0-32.0) mmol/L BUN 9 (7.0-18.0) mg/dL Creatinine 1.0 (0.6-1.0) mg/dL Est Cr Clr Drug Dosing 37.60 mL/min Estimated GFR (MDRD) 54.8 ml/min Glucose 96 (74-106) mg/dL POC Glucose (60-110) mg/dL Calcium 8.5 (8.5-10.1) mg/dL Total Bilirubin 0.3 (0.2-1.0) mg/dL AST 24 (15-37) IU/L ALT 27 (14-63) IU/L Alkaline Phosphatase 50 (46-116) U/L Troponin I < 0.050 (0.000-0.056) ng/mL Total Protein 7.3 (6.4-8.2) g/dL Albumin 3.4 (3.4-5.0) g/dL Globulin 3.9 (2.6-4.0) g/dL Albumin/Globulin Ratio 0.9 (0.9-1.6) TSH 3rd Generation 5.63 H (0.36-3.74) uIU/mL Urine Color Urine Appearance Urine pH (5.0-8.0) Ur Specific [place] (1.001-1.035) Urine Protein (NEGATIVE) mg/dL Urine Glucose (UA) (NEGATIVE) mg/dL Urine Ketones (NEGATIVE) mg/dL Urine Occult Blood (NEGATIVE) Urine Nitrite (NEGATIVE) Urine Bilirubin (NEGATIVE) Urine Urobilinogen (<2.0) EU/dL Ur Leukocyte Esterase (NEGATIVE) 05/24/18 05/24/18 Range/Units 21:21 22:30 WBC (4.0-11.0) K/uL RBC (4.30-5.90) M/uL Hgb (12.0-16.0) g/dL Hct (36.0-46.0) % MCV (80.0-98.0) fL MCH (27.0-32.0) pg MCHC (31.0-37.0) g/dL RDW Std Deviation (28.0-62.0) fl RDW Coeff of Shanda (11.0-15.0) % Plt Count (150-400) K/uL MPV (7.40-12.00) fL Neut % (Auto) (48.0-80.0) % Lymph % (Auto) (16.0-40.0) % [place] % (Auto) (0.0-15.0) % Eos % (Auto) (0.0-7.0) % Baso % (Auto) (0.0-1.5) % Neut # (Auto) (1.4-5.7) K/uL Lymph # (Auto) (0.6-2.4) K/uL [place] # (Auto) (0.0-0.8) K/uL Eos # (Auto) (0.0-0.7) K/uL Baso # (Auto) (0.0-0.1) K/uL Nucleated RBC % /100WBC Nucleated RBCs # K/uL INR Sodium (136-145) mmol/L Potassium (3.5-5.1) mmol/L Chloride (98-107) mmol/L Carbon Dioxide (21.0-32.0) mmol/L BUN (7.0-18.0) mg/dL Creatinine (0.6-1.0) mg/dL Est Cr Clr Drug Dosing mL/min Estimated GFR (MDRD) ml/min Glucose (74-106) mg/dL POC Glucose 90 (60-110) mg/dL Calcium (8.5-10.1) mg/dL Total Bilirubin (0.2-1.0) mg/dL AST (15-37) IU/L ALT (14-63) IU/L Alkaline Phosphatase (46-116) U/L Troponin I (0.000-0.056) ng/mL Total Protein (6.4-8.2) g/dL Albumin (3.4-5.0) g/dL Globulin (2.6-4.0) g/dL Albumin/Globulin Ratio (0.9-1.6) TSH 3rd Generation (0.36-3.74) uIU/mL Urine Color YELLOW Urine Appearance CLEAR Urine pH 6.0 (5.0-8.0) Ur Specific [place] 1.010 (1.001-1.035) Urine Protein NEGATIVE (NEGATIVE) mg/dL Urine Glucose (UA) NEGATIVE (NEGATIVE) mg/dL Urine Ketones NEGATIVE (NEGATIVE) mg/dL Urine Occult Blood NEGATIVE (NEGATIVE) Urine Nitrite NEGATIVE (NEGATIVE) Urine Bilirubin NEGATIVE (NEGATIVE) Urine Urobilinogen 0.2 (<2.0) EU/dL Ur Leukocyte Esterase NEGATIVE (NEGATIVE) Meds: Medications Generic Name Dose Route Start Last Admin Trade Name Freq PRN Reason Stop Dose Admin Sodium Chloride 10 ml 05/24/18 20:58 Saline Flush FLUSH ASDIRECTED PRN Keep Vein Open Sodium Chloride 2.5 ml 05/24/18 20:58 Saline Flush FLUSH ASDIRECTED PRN Keep Vein Open Discontinued Medications Generic Name Dose Route Start Last Admin Trade Name Freq PRN Reason Stop Dose Admin Acetaminophen 650 mg 05/24/18 20:58 05/24/18 21:16 Tylenol PO 05/24/18 20:59 650 mg NOW ONE Administration Sodium Chloride 1,000 mls @ 999 mls/hr 05/24/18 20:58 05/24/18 21:16 Normal Saline IV 05/24/18 21:58 999 mls/hr STAT ONE Administration Ketorolac Tromethamine 30 mg 05/24/18 22:16 Toradol IVPUSH 05/24/18 22:17 ONETIME ONE Departure - Departure Time of Disposition: 23:01 Disposition: Home, Self-Care 01 Condition: Good Clinical Impression: Light headedness Hypertension Qualifiers: Hypertension type: unspecified Qualified Code(s): I10 - Essential (primary) hypertension Referrals: PCP,None [Primary Care Provider] - Forms: ED Department Discharge Additional Instructions: The following information is given to patients seen in the emergency department who are being discharged to home. This information is to outline your options for follow-up care. We provide all patients seen in our emergency department with a follow-up referral. The need for follow-up, as well as the timing and circumstances, are variable depending upon the specifics of your emergency department visit. If you don't have a primary care physician on staff, we will provide you with a referral. We always advise you to contact your personal physician following an emergency department visit to inform them of the circumstance of the visit and for follow-up with them and/or the need for any referrals to a consulting specialist. The emergency department will also refer you to a specialist when appropriate. This referral assures that you have the opportunity for followup care with a specialist. All of these measure are taken in an effort to provide you with optimal care, which includes your followup. Under all circumstances we always encourage you to contact your private physician who remains a resource for coordinating your care. When calling for followup care, please make the office aware that this follow-up is from your recent emergency room visit. If for any reason you are refused follow-up, please contact the [facility] emergency department at and ask to speak to the emergency department charge nurse. [address] [place] [address] [facility] Primary care- Internal Medicine and Family [address] [address] Please contact her provider at [facility] or one of our providers for further care and evaluation of your blood pressure as well as doing more formal testing on your thyroid for adjustment of your medications as we discussed in the ED. Use Tylenol or ibuprofen for headache and try to watch the sodium and salt intake in her diet. If you would like to monitor your blood pressure at home please take it twice a day at the same time every day ( one value at late morning and the other before dinner) and record those numbers in a notebook to give to your provider to assist with your care. Return to ER as needed and as discussed. - My Orders Last 24 Hours: My Active Orders 05/24/18 20:58 Blood Glucose Check, Bedside [RC] ONETIME Cardiac Monitoring [RC] . DIRECTED EKG Documentation Completion [RC] STAT Orthostatic Vital Signs [RC] ASDIRECTED Oxygen Therapy, ED [RC] ASDIRECTED Pulse Oximetry [RC] ASDIRECTED Sodium Chloride 0.9% [Saline Flush] 10 ml FLUSH ASDIRECTED PRN Sodium Chloride 0.9% [Saline Flush] 2.5 ml FLUSH ASDIRECTED PRN Saline Lock Insert [OM.PC] Stat - Assessment/Plan Last 24 Hours: My Active Orders 05/24/18 20:58 Blood Glucose Check, Bedside [RC] ONETIME Cardiac Monitoring [RC] . DIRECTED EKG Documentation Completion [RC] STAT Orthostatic Vital Signs [RC] ASDIRECTED Oxygen Therapy, ED [RC] ASDIRECTED Pulse Oximetry [RC] ASDIRECTED Sodium Chloride 0.9% [Saline Flush] 10 ml FLUSH ASDIRECTED PRN Sodium Chloride 0.9% [Saline Flush] 2.5 ml FLUSH ASDIRECTED PRN Saline Lock Insert [OM.PC] Stat
--- NOTE | 2018-05-24 21:51 | CR ---
INDICATION: Hypertension TECHNIQUE: Chest 1 view COMPARISON: None FINDINGS: Cardiovascular and mediastinum: Heart size and vasculature are normal in caliber and appearance. Lungs and pleural spaces: Lungs are clear. No sign of infiltrate or mass. No sign of pleural effusion. No pneumothorax. Bones and soft tissues: No significant findings. IMPRESSION: No acute or significant findings. Dictated by Zoran Hernández MD @ May 24 2018 9:50PM Signed by Dr. Zoran Hernández @ May 24 2018 9:51PM
[2018-05-24 22:04] LABS: CHLORIDE,CL 101 mmol/L (98-107); SODIUM,NA 137 mmol/L (136-145)
[2018-05-24] MEDS ORDERED: Ketorolac 30 MG/ML SDV IVPUSH ONE (22:16)
--- NOTE | 2018-05-24 22:16 | CT ---
INDICATION: Headache TECHNIQUE: Head CT without contrast. COMPARISON: None FINDINGS: CSF spaces: Within normal limits for age. Brain parenchyma: There are nonspecific low attenuation white matter changes consistent with chronic microvascular disease. No sign of mass, hemorrhage, or midline shift. Skull base and calvarium: The visualized paranasal sinuses and mastoid air cells demonstrate no acute or significant findings. The visualized orbits are grossly unremarkable. No skull fractures. There is intracranial atherosclerosis. IMPRESSION: 1. No acute findings. 2. Nonspecific white matter disease, typical of chronic microvascular disease. Please note that all CT scans at this facility use dose modulation, iterative reconstruction, and/or weight-based dosing when appropriate to reduce radiation dose to as low as reasonably achievable. Dictated by Lisa Singleton MD @ May 24 2018 10:11PM Signed by Dr. Lisa Singleton @ May 24 2018 10:14PM
== END 2018-05-24 23:15 | disposition home or self-care (01) ==
LOC: MW.ED 20:34
DX: I10 Essential (primary) hypertension (principal); R42 Dizziness and giddiness; F17.210 Nicotine dependence, cigarettes, uncomplicated; Z88.5 Allergy status to narcotic agent; Z88.8 Allergy status to other drugs, medicaments and biological substances; Z79.82 Long term (current) use of aspirin; Z79.899 Other long term (current) drug therapy
CPT/HCPCS: 36415; 70450; 71045; 80053; 81003; 82962; 84443; 84484; 85025; 85610; 93005; 96360; 96361; 99285; A9270; J7040; 99284

== ENCOUNTER 2020-10-11 06:34 | Day surgery (SDC) | payer MEDICARE, MEDICAID ==
[~2020-10-11 06:34] MED LIST changes: -cefOXitin 2 GM in Premix Bag 1 BAG IV ONE
--- NOTE | 2020-10-11 07:13 | PCM.PREANE ---
Preanesthetic Assessment - Anesthesia/Transfusion/Family Hx Anesthesia History: Prior Anesthesia Without Reaction Other Type of Anesthesia Reaction Comment: SOB Transfusion History: No Prior Transfusion(s) Intubation History: Unknown - Review of Systems General: No Symptoms Pulmonary: Shortness of Breath Cardiovascular: No Symptoms Gastrointestinal: Abdominal Pain, Difficulty Swallowing Neurological: No Symptoms Other: Reports: Thyroid Problems - Physical Assessment NPO Status Date: 10/11/20 NPO Status Time: 00:00 Vital Signs: Last Vital Signs Temp 96.4 F L 10/11/20 06:42 Pulse 68 10/11/20 06:42 Resp 15 10/11/20 06:42 BP 114/66 10/11/20 06:42 Pulse Ox 97 10/11/20 06:42 Height: 5 ft Weight: 156 lb ASA Class: 3 Mental Status: Alert & Oriented x3 Airway Class: Mallampati = 2 Dentition: Reports: [place](s) Thyro-Mental Finger Breadths: 3 Mouth Opening Finger Breadths: 3 ROM/Head Extension: Full Lungs: Clear to Auscultation, Normal Respiratory Effort Cardiovascular: Regular Rate, Regular Rhythm - Allergies Allergies/Adverse Reactions: Allergies Allergy/AdvReac Type Severity Reaction Status Date / Time codeine Allergy Difficulty Verified 10/08/20 08:22 Breathing diazepam [From Valium] Allergy Arrhythmias Verified 10/08/20 08:22 hydromorphone [From Dilaudid] Allergy Anaphylactic Verified 10/08/20 08:22 Shock - Acknowledgements Anesthesia Type Planned: General Anesthesia Pt an Appropriate Candidate for the Planned Anesthesia: Yes Alternatives and Risks of Anesthesia Discussed w Pt/Guardian: Yes Pt/Guardian Understands and Agrees with Anesthesia Plan: Yes PreAnesthesia Questionnaire - Past Health History Medical/Surgical History: Denies Medical/Surgical History HEENT History: Reports: Other (See Below) Other HEENT History: wears glasses Cardiovascular History: Reports: Other (See Below) Other Cardiovascular History: situational hypertension Respiratory History: Reports: Other (See Below) Other Respiratory History: 18 to 20 yr history of smoking currently smokes "acouple" cigarettes per week Gastrointestinal History: Reports: Colon Polyp, Diverticulosis, Irritable Bowel Syndrome Genitourinary History: Reports: None 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: , Other (See Below) Other OB/BYN History: Hormone replacement therapy Musculoskeletal History: Reports: Arthritis, Back Pain, Chronic Neurological History: Reports: None Psychiatric History: Reports: Anxiety Other Psychiatric History: Anxious about the surgery Endocrine/Metabolic History: Reports: Hypothyroidism, Obesity/BMI 30+, Other (See Below) Other Endocrine/Metabolic History: vitamin D deficiency, vitamin B12 deficiency Hematologic History: Reports: B12 Deficiency Immunologic History: Reports: Other (See Below) Other Immunologic History: mild sjogren's syndrome Oncologic (Cancer) History: Reports: None Dermatologic History: Reports: None, Scleroderma - Infectious Disease History Infectious Disease History: Reports: Chicken Pox, Shingles - Past Surgical History Head Surgeries/Procedures: Reports: None HEENT Surgical History: Reports: LASIK, Tonsillectomy Cardiovascular Surgical History: Reports: None Respiratory Surgical History: Reports: None GI Surgical History: Reports: Appendectomy, Cholecystectomy, Colonoscopy, EGD Other GI Surgeries/Procedures: Pt donated right kidney in 1998 Female Surgical History: Reports: Breast Implant, Hysterectomy, Nephrectomy Other Female Surgeries/Procedures: Kidney donation to her son Endocrine Surgical History: Reports: None Neurological Surgical History: Reports: None Musculoskeletal Surgical History: Reports: None Oncologic Surgical History: Reports: None Dermatological Surgical History: Reports: None - SUBSTANCE USE Tobacco Use Status *Q: Current Some Day Tobacco User Tobacco Use Within Last Twelve Months: Cigarettes - HOME MEDS Home Medications: Home Meds Ergocalciferol (Vitamin D2) [Vitamin D2] 50,000 units PO ASDIRECTED 05/04/14 [History] LORazepam [Ativan] 0.5 mg PO ASDIRECTED PRN 05/04/14 [History] Aspirin [Adult Low Dose Aspirin EC] 81 mg PO DAILY 05/18/14 [History] Cyanocobalamin (Vitamin B12) [Vitamin B12] 1,000 mg IM ASDIRECTED 05/18/14 [History] Levothyroxine [Synthroid] 100 mcg PO DAILY 05/18/14 [History] Carboxymethylcellulose Sodium [Refresh Tears] 1 drop EYEBOTH ASDIRECTED PRN 11/02/16 [History] Estradiol Valerate 0.5 ml IM ASDIRECTED 11/02/16 [History] Acetaminophen [Tylenol Extra Strength] 1 - 2 tab PO ASDIRECTED PRN 10/08/20 [H istory] Benzonatate 200 mg PO TID PRN 10/08/20 [History] Cannabidiol (Cbd) Extract [CBD Oil] 1 caplet PO ASDIRECTED PRN 10/08/20 [History] Fluticasone Propionate [Flonase Allergy Relief] 1 spray NASBOTH ASDIRECTED PRN 10/08/20 [History] Lactulose 20 g PO DAILY PRN 10/08/20 [History] - CURRENT (IN HOUSE) MEDS Current Meds: Current Medications Lactated Ringer's (Ringers, Lactated) 1,000 mls @ 125 mls/hr IV ASDIRECTED HORACIO Last Admin: 10/11/20 07:03 Dose: 125 mls/hr Documented by:
[2020-10-11] MEDS ORDERED: propofoL 50 ML ONE (07:16)
[2020-10-11] MEDS ORDERED: Ondansetron 4 MG/2 ML SDV ONE (07:21)
[2020-10-11] MEDS ORDERED: Lidocaine 2% 5 ML SDV ONE (07:21)
--- NOTE | 2020-10-11 08:42 | PCM.OPNOTE ---
- General Post-Op/Procedure Note Date of Surgery/Procedure: 10/11/20 Operative Procedure(s): Esophagogastroduodenoscopy with gastric and esophageal biopsies. Colonoscopy. Pre Op Diagnosis: Abdominal bloating. Personal history of colon polyps. History of diverticulosis. Post-Op Diagnosis: Mild to moderate acute and chronic gastritis with superficial gastric ulcer. Esophagitis. Pancolonic diverticulosis. Anesthesia Technique: MAC (ASA III) Primary Surgeon: Sarwat Castillo Condition: Good Free Text/Narrative:: DICTATION [id number] CPT CODE [id number]
[2020-10-11] MEDS ORDERED: Lactated Ringers 1,000 ML IV SCH (08:45)
--- NOTE | 2020-10-11 09:03 | PCM.POSTAN ---
POST ANESTHESIA ASSESSMENT - MENTAL STATUS Mental Status: Alert, Oriented - VITAL SIGNS Vital Signs: Last Vital Signs Temp 97.7 F 10/11/20 08:35 Pulse 49 L 10/11/20 08:50 Resp 13 10/11/20 08:50 BP 109/45 L 10/11/20 08:50 Pulse Ox 93 L 10/11/20 08:50 - RESPIRATORY Respiratory Status: Respiratory Rate WNL, Airway Patent, O2 Saturation Stable - CARDIOVASCULAR CV Status: Pulse Rate WNL, Blood Pressure Stable - GASTROINTESTINAL GI Status: No Symptoms - POST OP HYDRATION Hydration Status: Adequate & Stable
--- NOTE | 2020-10-11 09:03 | PCM48HPAN ---
Post Anesthesia Note - EVALUATION WITHIN 48HRS OF ANESTHETIC Vital Signs in Normal Range: Yes Patient Participated in Evaluation: Yes Respiratory Function Stable: Yes Airway Patent: Yes Cardiovascular Function Stable: Yes Hydration Status Stable: Yes Pain Control Satisfactory: Yes Nausea and Vomiting Control Satisfactory: Yes Mental Status Recovered: Yes Vital Signs: Last Vital Signs Temp 97.7 F 10/11/20 08:35 Pulse 49 L 10/11/20 08:50 Resp 13 10/11/20 08:50 BP 109/45 L 10/11/20 08:50 Pulse Ox 93 L 10/11/20 08:50
[2020-10-11 09:04] VITALS: BP 114/66; PULSE 50
--- NOTE | 2020-10-11 12:14 | OR ---
SURGEON: Sarwat Castillo M.D. DATE OF PROCEDURE: 10/11/2020 OPERATION PERFORMED: Esophagogastroduodenoscopy with gastric and esophageal biopsy. PRIMARY SURGEON: Sarwat Castillo M.D. ANESTHESIA: MAC. ASA CLASSIFICATION: III. PREOPERATIVE DIAGNOSIS: Abdominal bloating. POSTOPERATIVE DIAGNOSES: 1. Mild to moderate gastritis. 2. Distal esophagitis. DESCRIPTION OF PROCEDURE: The patient was taken to the endoscopy room and positioned on the endoscopy table in the left lateral decubitus position. Time-out was called for appropriate identification of the patient and procedure. Monitored anesthesia care was provided. A bite block was placed between the patient's teeth. The gastroscope was inserted through the bite block into the oropharynx and advanced without difficulty through the esophagus and stomach into the duodenum where examination was now carried out in a retrograde fashion. The duodenum showed no acute inflammatory changes or ulcerations. The stomach did show mild to moderate acute gastritis with a very superficial ulcer just proximal to the incisura. Antral biopsies were obtained. The gastroscope was then retroflexed to visualize the proximal stomach. No significant hiatal hernia was noted. The gastroscope was then straightened and slowly withdrawn visualizing the greater and lesser curvatures. Again, no ulcerations were noted proximally. No gastric polyps were identified. The distal esophagus did show some mild esophagitis with columnar changes and biopsies of the distal esophagus were obtained. The mid and proximal esophagus show good contractility. No lesions were identified. The vocal cords were briefly visualized as the scope was withdrawn. The patient tolerated the procedure well. Following colonoscopy, she was taken to recovery room in stable condition. PIO / GRAYSON /[id number]
--- NOTE | 2020-10-11 12:26 | OR ---
SURGEON: Sarwat Castillo M.D. DATE OF PROCEDURE: 10/11/2020 OPERATION PERFORMED: Colonoscopy. PRIMARY SURGEON: Sarwat Castillo M.D. ANESTHESIA: MAC. ASA CLASSIFICATION: III. PREOPERATIVE DIAGNOSES: 1. Personal history of colon polyps. 2. Abdominal bloating. POSTOPERATIVE DIAGNOSIS: Pancolonic diverticulosis. DESCRIPTION OF PROCEDURE: With the patient having completed upper GI endoscopy, she was maintained in the left lateral decubitus position. The colonoscope was inserted into the rectum and advanced with moderate difficulty to the cecum. The cecum was identified by internal landmarks and external pressure. The colonoscope was retroflexed to visualize the ascending colon from below and then straightened and slowly withdrawn. The cecum, ascending colon, hepatic flexure, transverse colon, splenic flexure, descending colon, sigmoid colon, and rectum were well visualized. No tumors or polyps were encountered anywhere in the lower gastrointestinal tract. Again, diverticular changes were noted predominantly in the sigmoid colon. No stricture, spasm, or bleeding was noted from the sigmoid colon. The colonoscope was withdrawn to the rectum and retroflexed to visualize the anal orifice from above. Again, no tumors or polyps were seen and there were no acute hemorrhoidal changes. The colonoscope was then straightened, the rectum aspirated, and the colonoscope removed. The patient tolerated the procedure well and was taken to recovery room in stable condition. PIO GALICIA /[id number]
== END 2020-10-11 09:45 | disposition home or self-care (01) ==
LOC: MW.SDS 06:34
PROVIDERS: ATTEND Surgery
DX: Z12.11 Encounter for screening for malignant neoplasm of colon (principal); K57.30 Diverticulosis of large intestine without perforation or abscess without bleeding; K29.50 Unspecified chronic gastritis without bleeding; K20.90 Esophagitis, unspecified without bleeding; I10 Essential (primary) hypertension; E03.9 Hypothyroidism, unspecified; E53.8 Deficiency of other specified B group vitamins; E66.9 Obesity, unspecified; F17.210 Nicotine dependence, cigarettes, uncomplicated; Z88.5 Allergy status to narcotic agent; Z88.8 Allergy status to other drugs, medicaments and biological substances; Z79.82 Long term (current) use of aspirin; Z79.899 Other long term (current) drug therapy; Z79.890 Hormone replacement therapy; Z90.49 Acquired absence of other specified parts of digestive tract; Z98.890 Other specified postprocedural states; Z86.010 Personal history of colon polyps; Z68.30 Body mass index [BMI] 30.0-30.9, adult
CPT/HCPCS: 43239; G0105; J2405; J2704; J7120; 00813; 88305; 88342; 99100

== ENCOUNTER 2023-06-12 10:36 | Emergency (ER) | payer MEDICARE, MEDICAID ==
[2023-06-12] MEDS: Albuterol/Ipratropium 3.0-0.5 MG/3 ML Neb Soln NEB ONE (11:20)
[2023-06-12 11:32] LABS: CORONAVIRUS COVID-19 NAA NEGATIVE (NEGATIVE); INFLUENZA A NAA POSITIVE (NEGATIVE); INFLUENZA B NAA NEGATIVE (NEGATIVE); RESPIRATORY SYNCYTIAL VIR NAA NEGATIVE (NEGATIVE)
[2023-06-12 12:13] VITALS: BP 103/50; PULSE 82
== END 2023-06-12 12:12 | disposition home or self-care (01) ==
LOC: MW.ED 10:36
DX: J10.1 Influenza due to other identified influenza virus with other respiratory manifestations (principal); E03.9 Hypothyroidism, unspecified; E66.9 Obesity, unspecified; F17.210 Nicotine dependence, cigarettes, uncomplicated; Z68.32 Body mass index [BMI] 32.0-32.9, adult; Z88.5 Allergy status to narcotic agent; Z88.6 Allergy status to analgesic agent; Z88.8 Allergy status to other drugs, medicaments and biological substances; Z79.82 Long term (current) use of aspirin; Z79.899 Other long term (current) drug therapy; Z79.51 Long term (current) use of inhaled steroids; Z90.49 Acquired absence of other specified parts of digestive tract; Z90.710 Acquired absence of both cervix and uterus; Z75.8 Other problems related to medical facilities and other health care
CPT/HCPCS: 0241U; 71046; 94640; 99285; 99283; J7620-GY